=== PATIENT | male | born 1945 | race Caucasian/White ===

== ENCOUNTER 2017-10-07 14:38 | Inpatient (IN) | payer MEDICARE, MEDICAID ==
[~2017-10-07] VITALS: Ht 172.7 cm; Wt 60.0 kg
[~2017-10-07 14:38] MED LIST: AMIO200T36 PO; APIX2.5T PO; CARV6.253 PO; CLOP75TA15 PO; DOCU-28 PO; FLUT16SP10 INH; FURO-150 PO; HYDR-3972 PO; PANT20TA2 PO; POLY255P2 PO; POTA10CA44 PO; PRAV40TA PO; RAMI10CA PO; SPIR25TA PO
[2017-10-07] MEDS ORDERED: HYDROcodone/acetaminophen 5mg/325mg tablet PO ONE (16:05)
[2017-10-07 17:07] LABS: BASOPHILS % (AUTO) 0.4 % (0-1); EOSINOPHILS # (AUTO) 0.1 X10'3 (0-0.9); HEMOGLOBIN 9.7 g/dl (14.0-17.9); LYMPHOCYTES # (AUTO) 1.3 X10'3 (1.1-4.8); LYMPHOCYTES % (AUTO) 26.3 % (21-51); MEAN CORPUSCULAR HEMOGLOBIN 32.1 PG (27.0-31.0); MEAN CORPUSCULAR HGB CONC 34.7 % (33.0-36.5); MEAN CORPUSCULAR VOLUME 92.6 FL (78-98); MEAN PLATELET VOLUME 5.8 FL (7.4-10.4); MONOCYTES # (AUTO) 0.4 X10'3 (0-0.9); MONOCYTES % (AUTO) 7.2 % (2-12); NEUTROPHILS # (AUTO) 3.3 X10'3 (1.8-7.7); NEUTROPHILS % (AUTO) 64.1 % (42-75); PLATELET COUNT 358 X10'3 (140-440); RED BLOOD COUNT 3.02 X10'6 (4.70-6.10); RED CELL DISTRIBUTION WIDTH 15.4 % (11.5-14.5); WHITE BLOOD COUNT 5.1 X10'3 (4.5-11.0)
[2017-10-07 17:19] LABS: ALANINE AMINOTRANSFERASE 9 U/L (12-78); ALBUMIN 3.9 G/DL (3.4-5.0); ALBUMIN/GLOBULIN RATIO 1.2 (1.1-1.5); ALKALINE PHOSPHATASE 92 IU/L (46-116); ANION GAP 9 (8-16); ASPARTATE AMINO TRANSFERASE 16 U/L (10-37); BILIRUBIN,TOTAL 0.4 MG/DL (0.1-1.0); BLOOD UREA NITROGEN 17 MG/DL (7-18); BUN/CREATININE RATIO 14.7 (5.4-32.0); CHLORIDE 94 MMOL/L (99-107); CREATININE 1.16 MG/DL (0.60-1.10); GLUCOSE 90 MG/DL (70-104); POTASSIUM 4.1 MMOL/L (3.5-5.1); SODIUM 129 MMOL/L (135-145); TOTAL CARBON DIOXIDE 25.7 MMOL/L (24-32); TOTAL PROTEIN 7.1 G/DL (6.4-8.2); eGFR 62 ML/MIN
[2017-10-07] MEDS ORDERED: normal saline 1000ML IV soln IVB ONE (17:25)
[2017-10-07] MEDS ORDERED: BACL10TA PO (17:30)
[2017-10-07] MEDS ORDERED: mag hydrox/Alum hydrox/simeth 30ml oral suspension PO PRN (17:35)
[2017-10-07] MEDS ORDERED: potassium Cl 20 mEq SR tablet PO PRN ×2 (17:35)
[2017-10-07] MEDS ORDERED: ondansetron/PF 4mg/2ml inj IV PRN (17:35)
[2017-10-07] MEDS ORDERED: magnesium Cl slow-release 64mg tablet PO PRN (17:35)
[2017-10-07] MEDS ORDERED: acetaminophen 325mg tablet PO PRN (17:35)
[2017-10-07] MEDS ORDERED: magnesium 4gm in 100ml NS 100 ML IV PRN (17:35)
[2017-10-07] MEDS ORDERED: magnesium hydroxide 30ml (MOM) UD suspension PO PRN (17:35)
[2017-10-07] MEDS ORDERED: HYDROmorphone 1 mg/ml syringe IV PRN ×2 (17:35)
[2017-10-07] MEDS ORDERED: potassium Cl 40MEQ/NS 500ml 500 ML IV PRN ×2 (17:35)
[2017-10-07] MEDS ORDERED: magnesium 2GM in 50ml NS 50 ML IV PRN (17:35)
[2017-10-07] MEDS ORDERED: HYDROcodone/acetaminophen 5mg/325mg tablet PO PRN (17:35)
[2017-10-07] MEDS ORDERED: CYAN100097 IM (17:36)
[2017-10-07] MEDS ORDERED: FAMO-128 PO (17:39)
[2017-10-07 19:48] VITALS: BP 144/84
[2017-10-07] MEDS: carvedilol 6.25mg tablet PO SCH (19:52)
[2017-10-07] MEDS: normal saline 1000ml 1,000 ML IV SCH (19:57)
[2017-10-07] MEDS: spironolactone 25 MG tablet PO SCH (19:57)
[2017-10-07] MEDS: famotidine 20mg tablet PO SCH (19:57)
[2017-10-07 20:35] LABS: HEMOGLOBIN A1C 5.8 % (4.5-6.2)
[2017-10-07 22:00] VITALS: BP 130/68
[2017-10-07] MEDS: HYDROcodone/acetaminophen 10/325mg tab PO PRN (22:33)
[2017-10-08] VITALS (11 sets, daily range): BP systolic 78–145; BP diastolic 43–87
[2017-10-08 05:09] LABS: BASOPHILS % (AUTO) 0.5 % (0-1); EOSINOPHILS # (AUTO) 0.1 X10'3 (0-0.9); EOSINOPHILS % (AUTO) 2.8 % (0-6); HEMATOCRIT 28.1 % (42.0-52.0); HEMOGLOBIN 9.5 g/dl (14.0-17.9); LYMPHOCYTES # (AUTO) 1.1 X10'3 (1.1-4.8); LYMPHOCYTES % (AUTO) 32.8 % (21-51); MEAN CORPUSCULAR HEMOGLOBIN 31.7 PG (27.0-31.0); MEAN CORPUSCULAR HGB CONC 33.9 % (33.0-36.5); MEAN CORPUSCULAR VOLUME 93.7 FL (78-98); MEAN PLATELET VOLUME 5.8 FL (7.4-10.4); MONOCYTES # (AUTO) 0.3 X10'3 (0-0.9); MONOCYTES % (AUTO) 8.6 % (2-12); NEUTROPHILS # (AUTO) 1.9 X10'3 (1.8-7.7); NEUTROPHILS % (AUTO) 55.3 % (42-75); PLATELET COUNT 316 X10'3 (140-440); RED CELL DISTRIBUTION WIDTH 15.2 % (11.5-14.5); WHITE BLOOD COUNT 3.4 X10'3 (4.5-11.0)
[2017-10-08] MEDS: normal saline 1000ml 1,000 ML IV SCH (05:11)
[2017-10-08 05:20] LABS: ALBUMIN 3.3 G/DL (3.4-5.0); ANION GAP 10 (8-16); BLOOD UREA NITROGEN 13 MG/DL (7-18); BUN/CREATININE RATIO 13.7 (5.4-32.0); CALCIUM 8.6 MG/DL (8.5-10.1); CHLORIDE 101 MMOL/L (99-107); CREATININE 0.95 MG/DL (0.60-1.10); GLUCOSE 77 MG/DL (70-104); MAGNESIUM 2.1 MG/DL (1.5-2.4); POTASSIUM 3.6 MMOL/L (3.5-5.1); SODIUM 137 MMOL/L (135-145); TOTAL CARBON DIOXIDE 26.2 MMOL/L (24-32); eGFR 78 ML/MIN
[2017-10-08] MEDS: K and/or MAG REPLACEMENT MC SCH (06:59)
[2017-10-08] MEDS: spironolactone 25 MG tablet PO SCH ×2 (07:07→20:16)
[2017-10-08] MEDS: famotidine 20mg tablet PO SCH ×2 (07:07→20:16)
[2017-10-08] MEDS: amiodarone 200mg tablet PO SCH (07:07)
[2017-10-08] MEDS: carvedilol 6.25mg tablet PO SCH ×2 (07:07→20:16)
[2017-10-08] MEDS: lisinopril 10 MG tablet PO SCH (07:08)
[2017-10-08] MEDS: HYDROcodone/acetaminophen 10/325mg tab PO PRN ×3 (07:09→23:00)
[2017-10-08] MEDS: pravastatin 40mg tablet PO SCH (07:10)
[2017-10-08] MEDS: furosemide 20MG tablet PO SCH (07:10)
[2017-10-08] MEDS: docusate sod 100mg capsule PO SCH (20:16)
[2017-10-08] MEDS: baclofen 10mg tablet PO SCH (20:16)
[2017-10-08] MEDS: apixaban 2.5mg tablet PO SCH (22:04)
[2017-10-08] MEDS ORDERED: normal saline 250ml IV soln 250 ML IV ONE (22:10)
[2017-10-08] MEDS ORDERED: normal saline 500ml IV soln 500 ML IV ONE (22:20)
[2017-10-08] MEDS ORDERED: normal saline 1000ml 1,000 ML IV ONE (23:20)
[2017-10-09] VITALS (9 sets, daily range): BP systolic 92–123; BP diastolic 48–69
[2017-10-09] MEDS: HYDROcodone/acetaminophen 10/325mg tab PO PRN ×3 (05:21→22:11)
[2017-10-09 06:32] LABS: BASOPHILS % (AUTO) 0.4 % (0-1); EOSINOPHILS # (AUTO) 0.1 X10'3 (0-0.9); EOSINOPHILS % (AUTO) 2.1 % (0-6); HEMATOCRIT 27.3 % (42.0-52.0); HEMOGLOBIN 9.5 g/dl (14.0-17.9); LYMPHOCYTES # (AUTO) 1.2 X10'3 (1.1-4.8); LYMPHOCYTES % (AUTO) 22.2 % (21-51); MEAN CORPUSCULAR HEMOGLOBIN 32.4 PG (27.0-31.0); MEAN CORPUSCULAR HGB CONC 34.8 % (33.0-36.5); MEAN CORPUSCULAR VOLUME 92.9 FL (78-98); MEAN PLATELET VOLUME 5.8 FL (7.4-10.4); MONOCYTES # (AUTO) 0.5 X10'3 (0-0.9); NEUTROPHILS # (AUTO) 3.5 X10'3 (1.8-7.7); NEUTROPHILS % (AUTO) 66.3 % (42-75); PLATELET COUNT 318 X10'3 (140-440); RED BLOOD COUNT 2.94 X10'6 (4.70-6.10); RED CELL DISTRIBUTION WIDTH 15.7 % (11.5-14.5); WHITE BLOOD COUNT 5.3 X10'3 (4.5-11.0)
[2017-10-09 06:37] LABS: ALBUMIN 3.1 G/DL (3.4-5.0); ANION GAP 9 (8-16); BLOOD UREA NITROGEN 17 MG/DL (7-18); BUN/CREATININE RATIO 14.2 (5.4-32.0); CALCIUM 8.7 MG/DL (8.5-10.1); CHLORIDE 101 MMOL/L (99-107); GLUCOSE 106 MG/DL (70-104); MAGNESIUM 2.2 MG/DL (1.5-2.4); POTASSIUM 4.1 MMOL/L (3.5-5.1); SODIUM 136 MMOL/L (135-145); TOTAL CARBON DIOXIDE 26.3 MMOL/L (24-32); eGFR 59 ML/MIN
[2017-10-09] MEDS: K and/or MAG REPLACEMENT MC SCH (07:59)
[2017-10-09] MEDS: lisinopril 10 MG tablet PO SCH (08:00)
[2017-10-09] MEDS: spironolactone 25 MG tablet PO SCH ×2 (08:00→20:09)
[2017-10-09] MEDS: carvedilol 6.25mg tablet PO SCH (08:00)
[2017-10-09] MEDS ORDERED: polyethylene glycol 3350 17gm powd pack PO PRN (08:00)
[2017-10-09] MEDS ORDERED: calcitonin, salmon,Synth Nasal spray 200 units/actuation NS SCH (08:00)
[2017-10-09] MEDS: furosemide 20MG tablet PO SCH (08:00)
[2017-10-09] MEDS: baclofen 10mg tablet PO SCH ×2 (08:05→20:09)
[2017-10-09] MEDS: amiodarone 200mg tablet PO SCH (08:05)
[2017-10-09] MEDS: pantoprazole 40mg Tablet.DR PO SCH (08:05)
[2017-10-09] MEDS: pravastatin 40mg tablet PO SCH (08:05)
[2017-10-09] MEDS: famotidine 20mg tablet PO SCH (08:05)
[2017-10-09] MEDS: docusate sod 100mg capsule PO SCH ×2 (08:05→20:08)
[2017-10-09] MEDS: fluticasone nasal spray 16GM bottle NS SCH (08:06)
[2017-10-09] MEDS: apixaban 2.5mg tablet PO SCH ×2 (08:06→20:09)
[2017-10-09] MEDS ORDERED: HYDROmorphone inj. 0.5 MG/0.5 ML DISP.SYRIN ONE (18:35)
[2017-10-09] MEDS: carVEDilol 3.125mg tablet PO SCH (20:09)
[2017-10-10] MEDS: HYDROcodone/acetaminophen 10/325mg tab PO PRN ×2 (05:35→12:08)
[2017-10-10 06:00] VITALS: BP 107/67
[2017-10-10 06:35] LABS: BASOPHILS % (AUTO) 0.5 % (0-1); EOSINOPHILS # (AUTO) 0.1 X10'3 (0-0.9); HEMATOCRIT 27.8 % (42.0-52.0); HEMOGLOBIN 9.6 g/dl (14.0-17.9); LYMPHOCYTES # (AUTO) 1.3 X10'3 (1.1-4.8); LYMPHOCYTES % (AUTO) 27.4 % (21-51); MEAN CORPUSCULAR HEMOGLOBIN 32.2 PG (27.0-31.0); MEAN CORPUSCULAR HGB CONC 34.5 % (33.0-36.5); MEAN CORPUSCULAR VOLUME 93.1 FL (78-98); MEAN PLATELET VOLUME 5.9 FL (7.4-10.4); MONOCYTES # (AUTO) 0.4 X10'3 (0-0.9); MONOCYTES % (AUTO) 8.4 % (2-12); NEUTROPHILS # (AUTO) 2.9 X10'3 (1.8-7.7); NEUTROPHILS % (AUTO) 61.7 % (42-75); PLATELET COUNT 333 X10'3 (140-440); RED BLOOD COUNT 2.98 X10'6 (4.70-6.10); RED CELL DISTRIBUTION WIDTH 15.5 % (11.5-14.5); WHITE BLOOD COUNT 4.7 X10'3 (4.5-11.0)
[2017-10-10 06:52] LABS: ALBUMIN 3.2 G/DL (3.4-5.0); ANION GAP 10 (8-16); BLOOD UREA NITROGEN 21 MG/DL (7-18); BUN/CREATININE RATIO 16.9 (5.4-32.0); CALCIUM 8.7 MG/DL (8.5-10.1); CHLORIDE 98 MMOL/L (99-107); CREATININE 1.24 MG/DL (0.60-1.10); GLUCOSE 99 MG/DL (70-104); MAGNESIUM 2.1 MG/DL (1.5-2.4); POTASSIUM 4.5 MMOL/L (3.5-5.1); SODIUM 134 MMOL/L (135-145); TOTAL CARBON DIOXIDE 26.5 MMOL/L (24-32); eGFR 57 ML/MIN
[2017-10-10] MEDS: K and/or MAG REPLACEMENT MC SCH (08:00)
[2017-10-10] MEDS: carVEDilol 3.125mg tablet PO SCH ×2 (09:14→19:59)
[2017-10-10] MEDS: docusate sod 100mg capsule PO SCH ×2 (09:14→19:59)
[2017-10-10] MEDS: spironolactone 25 MG tablet PO SCH ×2 (09:14→19:59)
[2017-10-10] MEDS: pantoprazole 40mg Tablet.DR PO SCH (09:14)
[2017-10-10] MEDS: amiodarone 200mg tablet PO SCH (09:14)
[2017-10-10] MEDS: pravastatin 40mg tablet PO SCH (09:14)
[2017-10-10] MEDS: lisinopril 5mg tablet PO SCH (09:14)
[2017-10-10] MEDS: apixaban 2.5mg tablet PO SCH ×2 (09:15→19:59)
[2017-10-10] MEDS: baclofen 10mg tablet PO SCH ×2 (09:15→20:00)
[2017-10-10] MEDS: fluticasone nasal spray 16GM bottle NS SCH (09:16)
[2017-10-10 10:00] VITALS: BP 131/77
[2017-10-10 18:00] VITALS: BP 100/61
[2017-10-10] MEDS: polyethylene glycol 3350 17gm powd pack PO SCH (20:05)
[2017-10-10 22:00] VITALS: BP 110/65
[2017-10-11] MEDS: HYDROcodone/acetaminophen 10/325mg tab PO PRN ×2 (05:34→16:36)
[2017-10-11 05:45] LABS: BASOPHILS % (AUTO) 0.6 % (0-1); EOSINOPHILS # (AUTO) 0.1 X10'3 (0-0.9); EOSINOPHILS % (AUTO) 2.3 % (0-6); HEMATOCRIT 30.3 % (42.0-52.0); HEMOGLOBIN 10.3 g/dl (14.0-17.9); LYMPHOCYTES # (AUTO) 1.2 X10'3 (1.1-4.8); LYMPHOCYTES % (AUTO) 25.5 % (21-51); MEAN CORPUSCULAR HEMOGLOBIN 31.9 PG (27.0-31.0); MEAN CORPUSCULAR HGB CONC 34.1 % (33.0-36.5); MEAN CORPUSCULAR VOLUME 93.7 FL (78-98); MEAN PLATELET VOLUME 5.6 FL (7.4-10.4); MONOCYTES # (AUTO) 0.4 X10'3 (0-0.9); MONOCYTES % (AUTO) 7.8 % (2-12); NEUTROPHILS % (AUTO) 63.8 % (42-75); PLATELET COUNT 340 X10'3 (140-440); RED BLOOD COUNT 3.23 X10'6 (4.70-6.10); RED CELL DISTRIBUTION WIDTH 15.3 % (11.5-14.5); WHITE BLOOD COUNT 4.7 X10'3 (4.5-11.0)
[2017-10-11 05:58] LABS: ALBUMIN 3.5 G/DL (3.4-5.0); ANION GAP 8 (8-16); BLOOD UREA NITROGEN 22 MG/DL (7-18); BUN/CREATININE RATIO 23.2 (5.4-32.0); CHLORIDE 100 MMOL/L (99-107); CREATININE 0.95 MG/DL (0.60-1.10); GLUCOSE 99 MG/DL (70-104); MAGNESIUM 2.2 MG/DL (1.5-2.4); POTASSIUM 4.8 MMOL/L (3.5-5.1); SODIUM 135 MMOL/L (135-145); TOTAL CARBON DIOXIDE 26.6 MMOL/L (24-32); eGFR 78 ML/MIN
[2017-10-11 06:00] VITALS: BP 134/70
[2017-10-11] MEDS: K and/or MAG REPLACEMENT MC SCH (08:00)
[2017-10-11] MEDS: fluticasone nasal spray 16GM bottle NS SCH (09:21)
[2017-10-11] MEDS: pantoprazole 40mg Tablet.DR PO SCH (09:21)
[2017-10-11] MEDS: spironolactone 25 MG tablet PO SCH ×2 (09:21→20:00)
[2017-10-11] MEDS: apixaban 2.5mg tablet PO SCH (09:22)
[2017-10-11] MEDS: carVEDilol 3.125mg tablet PO SCH ×2 (09:22→20:00)
[2017-10-11] MEDS: amiodarone 200mg tablet PO SCH (09:23)
[2017-10-11] MEDS: docusate sod 100mg capsule PO SCH ×2 (09:24→20:00)
[2017-10-11] MEDS: pravastatin 40mg tablet PO SCH (09:24)
[2017-10-11] MEDS: baclofen 10mg tablet PO SCH ×2 (09:24→20:06)
[2017-10-11 10:00] VITALS: BP 125/82
[2017-10-11] MEDS: lisinopril 5mg tablet PO SCH (14:43)
[2017-10-11 18:00] VITALS: BP 96/54
[2017-10-11] MEDS: polyethylene glycol 3350 17gm powd pack PO SCH (20:03)
[2017-10-11 22:00] VITALS: BP 90/53
[2017-10-12] MEDS: HYDROcodone/acetaminophen 10/325mg tab PO PRN ×3 (00:53→22:20)
[2017-10-12 06:00] VITALS: BP 111/66
[2017-10-12 06:59] LABS: BASOPHILS % (AUTO) 0.3 % (0-1); EOSINOPHILS # (AUTO) 0.2 X10'3 (0-0.9); EOSINOPHILS % (AUTO) 2.9 % (0-6); HEMOGLOBIN 9.6 g/dl (14.0-17.9); LYMPHOCYTES # (AUTO) 1.5 X10'3 (1.1-4.8); LYMPHOCYTES % (AUTO) 26.8 % (21-51); MEAN CORPUSCULAR HEMOGLOBIN 32.2 PG (27.0-31.0); MEAN CORPUSCULAR HGB CONC 34.5 % (33.0-36.5); MEAN CORPUSCULAR VOLUME 93.4 FL (78-98); MEAN PLATELET VOLUME 5.9 FL (7.4-10.4); MONOCYTES # (AUTO) 0.5 X10'3 (0-0.9); MONOCYTES % (AUTO) 8.4 % (2-12); NEUTROPHILS # (AUTO) 3.5 X10'3 (1.8-7.7); NEUTROPHILS % (AUTO) 61.6 % (42-75); PLATELET COUNT 326 X10'3 (140-440); RED CELL DISTRIBUTION WIDTH 15.4 % (11.5-14.5); WHITE BLOOD COUNT 5.6 X10'3 (4.5-11.0)
[2017-10-12 07:23] LABS: ALBUMIN 3.3 G/DL (3.4-5.0); ANION GAP 7 (8-16); BLOOD UREA NITROGEN 27 MG/DL (7-18); CALCIUM 8.7 MG/DL (8.5-10.1); CHLORIDE 99 MMOL/L (99-107); GLUCOSE 89 MG/DL (70-104); MAGNESIUM 2.3 MG/DL (1.5-2.4); POTASSIUM 4.7 MMOL/L (3.5-5.1); SODIUM 133 MMOL/L (135-145); eGFR 73 ML/MIN
[2017-10-12] MEDS: K and/or MAG REPLACEMENT MC SCH (08:00)
[2017-10-12] MEDS: pantoprazole 40mg Tablet.DR PO SCH (08:07)
[2017-10-12] MEDS: amiodarone 200mg tablet PO SCH (08:08)
[2017-10-12] MEDS: docusate sod 100mg capsule PO SCH ×2 (08:08→20:16)
[2017-10-12] MEDS: baclofen 10mg tablet PO SCH ×2 (08:08→20:16)
[2017-10-12] MEDS: lisinopril 5mg tablet PO SCH (08:08)
[2017-10-12] MEDS: carVEDilol 3.125mg tablet PO SCH ×2 (08:08→20:16)
[2017-10-12] MEDS: pravastatin 40mg tablet PO SCH (08:08)
[2017-10-12] MEDS: spironolactone 25 MG tablet PO SCH ×2 (08:08→20:16)
[2017-10-12] MEDS: fluticasone nasal spray 16GM bottle NS SCH (08:08)
[2017-10-12 08:18] VITALS: BP 121/86
[2017-10-12 18:00] VITALS: BP 118/66
[2017-10-12] MEDS: polyethylene glycol 3350 17gm powd pack PO SCH (20:17)
[2017-10-12 22:00] VITALS: BP 112/68
[2017-10-13] VITALS (12 sets, daily range): BP systolic 101–193; BP diastolic 62–124
[2017-10-13] MEDS: HYDROcodone/acetaminophen 10/325mg tab PO PRN (05:42)
[2017-10-13 06:27] LABS: BASOPHILS % (AUTO) 0.3 % (0-1); EOSINOPHILS # (AUTO) 0.1 X10'3 (0-0.9); EOSINOPHILS % (AUTO) 2.4 % (0-6); HEMATOCRIT 28.7 % (42.0-52.0); HEMOGLOBIN 9.8 g/dl (14.0-17.9); LYMPHOCYTES # (AUTO) 1.4 X10'3 (1.1-4.8); LYMPHOCYTES % (AUTO) 25.6 % (21-51); MEAN CORPUSCULAR HEMOGLOBIN 32.1 PG (27.0-31.0); MEAN CORPUSCULAR HGB CONC 34.2 % (33.0-36.5); MONOCYTES # (AUTO) 0.5 X10'3 (0-0.9); MONOCYTES % (AUTO) 8.6 % (2-12); NEUTROPHILS # (AUTO) 3.5 X10'3 (1.8-7.7); NEUTROPHILS % (AUTO) 63.1 % (42-75); PLATELET COUNT 364 X10'3 (140-440); RED BLOOD COUNT 3.05 X10'6 (4.70-6.10); RED CELL DISTRIBUTION WIDTH 16.1 % (11.5-14.5); WHITE BLOOD COUNT 5.6 X10'3 (4.5-11.0)
[2017-10-13 06:35] LABS: ALBUMIN 3.4 G/DL (3.4-5.0); ANION GAP 8 (8-16); BLOOD UREA NITROGEN 25 MG/DL (7-18); CALCIUM 8.8 MG/DL (8.5-10.1); CHLORIDE 99 MMOL/L (99-107); CREATININE 1.19 MG/DL (0.60-1.10); GLUCOSE 90 MG/DL (70-104); MAGNESIUM 2.4 MG/DL (1.5-2.4); POTASSIUM 4.6 MMOL/L (3.5-5.1); SODIUM 133 MMOL/L (135-145); eGFR 60 ML/MIN
[2017-10-13] MEDS ORDERED: midazolam 2 mg/2 ml injection IV PRN (08:00)
[2017-10-13] MEDS ORDERED: fentaNYL/PF 50MCG/1 ML 2ML syringe IV PRN (08:00)
[2017-10-13] MEDS ORDERED: clindamycin 600mg/D5W 50ml 50 ML IV ONE ×2 (08:00→08:07)
[2017-10-13] MEDS: K and/or MAG REPLACEMENT MC SCH (08:00)
[2017-10-13] MEDS ORDERED: normal saline 1000ml 1,000 ML IV SCH ×2 (08:00→11:04)
[2017-10-13] MEDS: pantoprazole 40mg Tablet.DR PO SCH (08:03)
[2017-10-13] MEDS ORDERED: LIDOcaine 1%/PF (10mg/ml) 5ml vial ONE (08:24)
[2017-10-13] MEDS ORDERED: iohexol 300 MG/1 ML 50ml polymer ONE (08:24)
[2017-10-13] MEDS ORDERED: fentaNYL/PF 50MCG/1 ML 2ML syringe ONE ×2 (08:27→09:35)
[2017-10-13] MEDS ORDERED: midazolam 2 mg/2 ml injection ONE ×2 (08:27→09:35)
[2017-10-13] MEDS ORDERED: diphenhydrAMINE 50 mg/ml inj ONE ×2 (08:52→08:59)
[2017-10-13] MEDS ORDERED: diphenhydrAMINE 50 mg/ml inj IV ONE (09:10)
[2017-10-13] MEDS: fluticasone nasal spray 16GM bottle NS SCH (11:04)
[2017-10-13] MEDS: amiodarone 200mg tablet PO SCH (11:05)
[2017-10-13] MEDS: pravastatin 40mg tablet PO SCH (11:05)
[2017-10-13] MEDS: docusate sod 100mg capsule PO SCH (11:05)
[2017-10-13] MEDS: baclofen 10mg tablet PO SCH (11:05)
[2017-10-13] MEDS: carVEDilol 3.125mg tablet PO SCH (11:05)
[2017-10-13] MEDS: spironolactone 25 MG tablet PO SCH (11:05)
[2017-10-13] MEDS: lisinopril 5mg tablet PO SCH (11:05)
[2017-10-13] MEDS ORDERED: morphine 10mg/ml inj. IV PRN (18:35)
[2017-10-13] MEDS ORDERED: morphine 10mg/0.5ml (conc. morphine) oral syringe PO PRN (18:35)
[2017-10-13] MEDS ORDERED: LORazepam 2 mg/ml vial IV PRN (18:35)
[2017-10-13] MEDS ORDERED: sennosides/docusate sodium tablet PO SCH (20:00)
[2017-10-13] MEDS ORDERED: docusate sod 100mg capsule PO SCH (20:00)
== END 2017-10-13 19:03 | DRG 673 ==
LOC: ER 14:38 → ED HOLD 17:35 → ORTHO 4S 19:15
PROVIDERS: ADMIT Internal Medicine; ATTEND Internal Medicine
PROC: 0QS03ZZ Reposition Lumbar Vertebra, Percutaneous Approach (ICD-10-PCS; principal; 2017-10-13)
PROC: 0Q903ZX Drainage of Lumbar Vertebra, Percutaneous Approach, Diagnostic (ICD-10-PCS; 2017-10-13)
PROC: 0QU03JZ Supplement Lumbar Vertebra with Synthetic Substitute, Percutaneous Approach (ICD-10-PCS; 2017-10-13)
PROC: BR19ZZZ Fluoroscopy of Lumbar Spine (ICD-10-PCS; 2017-10-13)
DX: N17.9 Acute kidney failure, unspecified (principal); I71.00 Dissection of unspecified site of aorta; S32.038A Other fracture of third lumbar vertebra, initial encounter for closed fracture; I48.0 Paroxysmal atrial fibrillation; E87.1 Hypo-osmolality and hyponatremia; I11.0 Hypertensive heart disease with heart failure; I50.9 Heart failure, unspecified; E86.0 Dehydration; D64.9 Anemia, unspecified; E11.9 Type 2 diabetes mellitus without complications; I25.10 Atherosclerotic heart disease of native coronary artery without angina pectoris; I71.4 Abdominal aortic aneurysm, without rupture; J30.9 Allergic rhinitis, unspecified; E78.5 Hyperlipidemia, unspecified; H54.8 Legal blindness, as defined in USA; R62.7 Adult failure to thrive; Z60.2 Problems related to living alone; Z88.0 Allergy status to penicillin; Z79.899 Other long term (current) drug therapy; Z79.01 Long term (current) use of anticoagulants; X58.XXXA Exposure to other specified factors, initial encounter; Y92.89 Other specified places as the place of occurrence of the external cause
CPT/HCPCS: 22514; 36415; 72100; 72131; 72148; 80048; 80053; 83036; 83735; 85025; 87070; 88173; 88305; 93005; 97110; 97116; 97162; 97530; 99152; 99153; 99285; A4620; J1170; J1200; J2001; J2250; J2405; J3010; J3490; J7030; Q9967

== ENCOUNTER 2017-10-25 15:01 | Inpatient (IN) | payer MEDICARE, MEDICAID ==
[~2017-10-25] VITALS: Ht 172.7 cm; Wt 64.7 kg
[~2017-10-25 15:01] MED LIST changes: +BACL10TA PO; +CYAN100097 IM; +FAMO-128 PO
[2017-10-25] MEDS ORDERED: ondansetron/PF 4mg/2ml inj IV ONE (15:15)
[2017-10-25] MEDS ORDERED: aspirin 81mg tab.chew PO ONE (15:35)
[2017-10-25 15:41] LABS: BASOPHILS % (AUTO) 0.9 % (0-1); EOSINOPHILS # (AUTO) 0.1 X10'3 (0-0.9); EOSINOPHILS % (AUTO) 1.7 % (0-6); HEMATOCRIT 27.8 % (42.0-52.0); HEMOGLOBIN 9.5 g/dl (14.0-17.9); LYMPHOCYTES # (AUTO) 1.2 X10'3 (1.1-4.8); LYMPHOCYTES % (AUTO) 25.5 % (21-51); MEAN CORPUSCULAR HEMOGLOBIN 31.6 PG (27.0-31.0); MEAN CORPUSCULAR HGB CONC 34.2 % (33.0-36.5); MEAN CORPUSCULAR VOLUME 92.3 FL (78-98); MEAN PLATELET VOLUME 5.9 FL (7.4-10.4); MONOCYTES # (AUTO) 0.4 X10'3 (0-0.9); MONOCYTES % (AUTO) 8.2 % (2-12); NEUTROPHILS # (AUTO) 2.9 X10'3 (1.8-7.7); NEUTROPHILS % (AUTO) 63.7 % (42-75); PLATELET COUNT 499 X10'3 (140-440); RED BLOOD COUNT 3.01 X10'6 (4.70-6.10); RED CELL DISTRIBUTION WIDTH 15.7 % (11.5-14.5); WHITE BLOOD COUNT 4.6 X10'3 (4.5-11.0)
[2017-10-25 15:53] LABS: PARTIAL THROMBOPLASTIN TIME 27 SECONDS (22-32); PROTHROMBIN TIME 10.3 SECONDS (9.0-12.0)
[2017-10-25 16:04] LABS: ALANINE AMINOTRANSFERASE 22 U/L (12-78); ALBUMIN 3.7 G/DL (3.4-5.0); ALBUMIN/GLOBULIN RATIO 1.1 (1.1-1.5); ALKALINE PHOSPHATASE 153 IU/L (46-116); ANION GAP 9 (8-16); ASPARTATE AMINO TRANSFERASE 28 U/L (10-37); BILIRUBIN,TOTAL 0.3 MG/DL (0.1-1.0); BLOOD UREA NITROGEN 26 MG/DL (7-18); BUN/CREATININE RATIO 20.6 (5.4-32.0); CALCIUM 8.3 MG/DL (8.5-10.1); CHLORIDE 98 MMOL/L (99-107); CREATININE 1.26 MG/DL (0.60-1.10); GLUCOSE 87 MG/DL (70-104); LIPASE 307 U/L (73-393); MAGNESIUM 2.4 MG/DL (1.5-2.4); POTASSIUM 4.8 MMOL/L (3.5-5.1); SODIUM 131 MMOL/L (135-145); TOTAL CARBON DIOXIDE 23.9 MMOL/L (24-32); eGFR 56 ML/MIN
[2017-10-25] MEDS ORDERED: bisacodyl 10mg suppository rectal RC PRN (20:30)
[2017-10-25] MEDS ORDERED: ondansetron/PF 4mg/2ml inj IV PRN (20:30)
[2017-10-25] MEDS ORDERED: mag hydrox/Alum hydrox/simeth 30ml oral suspension PO PRN (20:30)
[2017-10-25] MEDS ORDERED: acetaminophen 325mg tablet PO PRN (20:30)
[2017-10-25] MEDS ORDERED: magnesium hydroxide 30ml (MOM) UD suspension PO PRN (20:30)
[2017-10-25 20:35] LABS: CLARITY,URINE Clear (Clear); COLOR,URINE Yellow (Yellow); GLUCOSE, URINE Negative (Neg); KETONES,URINE Negative (Neg); LEUKOCYTE ESTERASE ,URINE Negative (Neg); NITRITES, URINE Negative (Neg); OCCULT BLOOD,URINE Negative (Neg); PROTEIN,URINE Negative (Neg)
[2017-10-25] MEDS ORDERED: lactulose 20gm/30ml cup PO ONE (20:40)
[2017-10-25 20:48] LABS: UA COLLECTION TYPE VOIDED
[2017-10-25] MEDS: HYDROcodone/acetaminophen 10/325mg tab PO PRN (21:07)
[2017-10-26 07:25] VITALS: BP 134/68
[2017-10-26 08:00] VITALS: BP 127/73
[2017-10-26] MEDS ORDERED: furosemide 20MG tablet PO SCH (08:00)
[2017-10-26] MEDS: fluticasone nasal spray 16GM bottle NS SCH (08:00)
[2017-10-26] MEDS ORDERED: lisinopril 10 MG tablet PO SCH (08:00)
[2017-10-26] MEDS ORDERED: potassium chloride 10mEq CAPSULE.SA PO SCH (08:00)
[2017-10-26 08:41] LABS: ALANINE AMINOTRANSFERASE 25 U/L (12-78); ALBUMIN 3.3 G/DL (3.4-5.0); ALBUMIN/GLOBULIN RATIO 1.1 (1.1-1.5); ALKALINE PHOSPHATASE 139 IU/L (46-116); ANION GAP 10 (8-16); ASPARTATE AMINO TRANSFERASE 22 U/L (10-37); BILIRUBIN,TOTAL 0.3 MG/DL (0.1-1.0); BLOOD UREA NITROGEN 15 MG/DL (7-18); BUN/CREATININE RATIO 17.9 (5.4-32.0); CALCIUM 8.6 MG/DL (8.5-10.1); CHLORIDE 103 MMOL/L (99-107); CREATININE 0.84 MG/DL (0.60-1.10); GLUCOSE 81 MG/DL (70-104); POTASSIUM 4.6 MMOL/L (3.5-5.1); SODIUM 138 MMOL/L (135-145); TOTAL CARBON DIOXIDE 25.5 MMOL/L (24-32); TOTAL PROTEIN 6.3 G/DL (6.4-8.2); eGFR 90 ML/MIN
[2017-10-26] MEDS: spironolactone 25 MG tablet PO SCH ×2 (10:05→20:00)
[2017-10-26] MEDS: clopidogrel 75mg tablet PO SCH (10:06)
[2017-10-26] MEDS: amiodarone 200mg tablet PO SCH (10:06)
[2017-10-26] MEDS: carvedilol 6.25mg tablet PO SCH ×2 (10:06→20:00)
[2017-10-26] MEDS: docusate sod 100mg capsule PO SCH ×2 (10:06→20:16)
[2017-10-26] MEDS: pantoprazole 40mg Tablet.DR PO SCH (10:07)
[2017-10-26] MEDS: famotidine 20mg tablet PO SCH ×2 (10:07→20:17)
[2017-10-26] MEDS: pravastatin 40mg tablet PO SCH (10:10)
[2017-10-26] MEDS: apixaban 2.5mg tablet PO SCH ×2 (10:11→20:17)
[2017-10-26 11:00] VITALS: BP 115/71
[2017-10-26] MEDS: potassium Cl 20 mEq SR tablet PO SCH (13:45)
[2017-10-26 20:00] VITALS: BP 84/51
[2017-10-26] MEDS: HYDROcodone/acetaminophen 10/325mg tab PO PRN (20:08)
[2017-10-27] VITALS: BP 81/52
[2017-10-27] MEDS ORDERED: normal saline 1000ml 1,000 ML IV ONE (00:55)
[2017-10-27] MEDS: HYDROcodone/acetaminophen 10/325mg tab PO PRN ×2 (01:11→16:43)
[2017-10-27 07:00] VITALS: BP 103/63
[2017-10-27] MEDS: pantoprazole 40mg Tablet.DR PO SCH (07:30)
[2017-10-27] MEDS: apixaban 2.5mg tablet PO SCH ×2 (08:00→19:38)
[2017-10-27] MEDS: carvedilol 6.25mg tablet PO SCH ×2 (08:00→19:38)
[2017-10-27] MEDS: pravastatin 40mg tablet PO SCH (08:00)
[2017-10-27] MEDS: furosemide 20MG tablet PO SCH (08:00)
[2017-10-27] MEDS: lisinopril 2.5mg tablet PO SCH (08:00)
[2017-10-27] MEDS: fluticasone nasal spray 16GM bottle NS SCH (08:00)
[2017-10-27] MEDS: amiodarone 200mg tablet PO SCH (08:58)
[2017-10-27] MEDS: docusate sod 100mg capsule PO SCH ×2 (08:58→19:37)
[2017-10-27] MEDS: potassium Cl 20 mEq SR tablet PO SCH (08:59)
[2017-10-27] MEDS: clopidogrel 75mg tablet PO SCH (08:59)
[2017-10-27] MEDS: famotidine 20mg tablet PO SCH ×2 (08:59→19:35)
[2017-10-27 11:00] VITALS: BP 99/58
[2017-10-27 20:00] VITALS: BP_SYST 103; BP_SYST 105; BP_SYST 109; BP_SYST 113; BP_DIAS 61; BP_DIAS 66; BP_DIAS 67; BP_DIAS 68
[2017-10-27] MEDS ORDERED: sennosides 8.6mg tablet PO SCH (21:00)
[2017-10-28] VITALS: BP 125/77
[2017-10-28] MEDS: fluticasone nasal spray 16GM bottle NS SCH (01:25)
[2017-10-28 06:20] LABS: BASOPHILS % (AUTO) 0.2 % (0-1); EOSINOPHILS # (AUTO) 0.2 X10'3 (0-0.9); EOSINOPHILS % (AUTO) 2.8 % (0-6); HEMATOCRIT 27.8 % (42.0-52.0); HEMOGLOBIN 9.5 g/dl (14.0-17.9); LYMPHOCYTES # (AUTO) 1.6 X10'3 (1.1-4.8); MEAN CORPUSCULAR HEMOGLOBIN 31.1 PG (27.0-31.0); MEAN CORPUSCULAR HGB CONC 34.1 % (33.0-36.5); MEAN CORPUSCULAR VOLUME 91.3 FL (78-98); MEAN PLATELET VOLUME 6.1 FL (7.4-10.4); MONOCYTES # (AUTO) 0.5 X10'3 (0-0.9); MONOCYTES % (AUTO) 7.7 % (2-12); NEUTROPHILS # (AUTO) 4.1 X10'3 (1.8-7.7); NEUTROPHILS % (AUTO) 64.3 % (42-75); PLATELET COUNT 463 X10'3 (140-440); RED BLOOD COUNT 3.05 X10'6 (4.70-6.10); RED CELL DISTRIBUTION WIDTH 15.9 % (11.5-14.5); WHITE BLOOD COUNT 6.4 X10'3 (4.5-11.0)
[2017-10-28 06:47] LABS: ALBUMIN 3.3 G/DL (3.4-5.0); ANION GAP 10 (8-16); BLOOD UREA NITROGEN 20 MG/DL (7-18); BUN/CREATININE RATIO 22.5 (5.4-32.0); CALCIUM 8.7 MG/DL (8.5-10.1); CHLORIDE 101 MMOL/L (99-107); CREATININE 0.89 MG/DL (0.60-1.10); GLUCOSE 95 MG/DL (70-104); POTASSIUM 4.2 MMOL/L (3.5-5.1); SODIUM 136 MMOL/L (135-145); TOTAL CARBON DIOXIDE 24.9 MMOL/L (24-32); eGFR 84 ML/MIN
[2017-10-28 07:00] VITALS: BP 116/76
[2017-10-28 08:00] VITALS: BP_SYST 114; BP_SYST 116; BP_SYST 95; BP_DIAS 64; BP_DIAS 68; BP_DIAS 76
[2017-10-28] MEDS: famotidine 20mg tablet PO SCH (09:02)
[2017-10-28] MEDS: lisinopril 2.5mg tablet PO SCH (09:03)
[2017-10-28] MEDS: carvedilol 6.25mg tablet PO SCH (09:03)
[2017-10-28] MEDS: pravastatin 40mg tablet PO SCH (09:04)
[2017-10-28] MEDS: furosemide 20MG tablet PO SCH (09:04)
[2017-10-28] MEDS: apixaban 2.5mg tablet PO SCH (09:04)
[2017-10-28] MEDS: docusate sod 100mg capsule PO SCH (09:04)
[2017-10-28] MEDS: amiodarone 200mg tablet PO SCH (09:05)
[2017-10-28] MEDS: clopidogrel 75mg tablet PO SCH (09:05)
[2017-10-28] MEDS: potassium Cl 20 mEq SR tablet PO SCH (09:05)
[2017-10-28] MEDS: pantoprazole 40mg Tablet.DR PO SCH (09:05)
[2017-10-28 11:00] VITALS: BP_SYST 106; BP_SYST 112; BP_SYST 122; BP_SYST 98; BP_DIAS 67; BP_DIAS 71; BP_DIAS 75
[2017-10-28] MEDS ORDERED: CARV6.253 PO (16:28)
[2017-10-28] MEDS ORDERED: FURO20TA4 PO (16:28)
== END 2017-10-28 16:59 | disposition home health service (06) | DRG 389 ==
LOC: ER 15:01 → OBSVTOIN 23:36 → ED HOLD 23:36 → SUR 3N 10-26 07:13
PROVIDERS: ADMIT Internal Medicine; ATTEND Family Medicine
DX: K56.41 Fecal impaction (principal); E87.1 Hypo-osmolality and hyponatremia; I48.91 Unspecified atrial fibrillation; I50.20 Unspecified systolic (congestive) heart failure; I11.0 Hypertensive heart disease with heart failure; D64.9 Anemia, unspecified; E11.9 Type 2 diabetes mellitus without complications; H54.8 Legal blindness, as defined in USA; M48.56XD Collapsed vertebra, not elsewhere classified, lumbar region, subsequent encounter for fracture with routine healing; H55.00 Unspecified nystagmus; I25.10 Atherosclerotic heart disease of native coronary artery without angina pectoris; I95.1 Orthostatic hypotension; Z60.2 Problems related to living alone; Z88.0 Allergy status to penicillin; Z79.02 Long term (current) use of antithrombotics/antiplatelets; Z79.01 Long term (current) use of anticoagulants; Z79.899 Other long term (current) drug therapy
CPT/HCPCS: 36415; 70450; 72131; 74176; 80048; 80053; 81003; 82948; 83605; 83690; 83735; 83880; 84145; 84484; 85025; 85610; 85730; 87040; 87070; 93005; 93306; 96374; 99285; J2405; J7030

== ENCOUNTER 2017-11-22 14:02 | Emergency (ER) | payer MEDICARE, MEDICAID ==
[~2017-11-22] VITALS: Ht 172.7 cm; Wt 47.9 kg
[~2017-11-22 14:02] MED LIST changes: -BACL10TA PO; -FURO-150 PO; +FURO20TA4 PO; -PANT20TA2 PO; -RAMI10CA PO; -SPIR25TA PO
[2017-11-22 17:08] LABS: ALANINE AMINOTRANSFERASE 18 U/L (12-78); ALBUMIN 3.7 G/DL (3.4-5.0); ALBUMIN/GLOBULIN RATIO 1.2 (1.1-1.5); ALKALINE PHOSPHATASE 80 IU/L (46-116); ANION GAP 8 (8-16); ASPARTATE AMINO TRANSFERASE 20 U/L (10-37); BILIRUBIN,TOTAL 0.3 MG/DL (0.1-1.0); BLOOD UREA NITROGEN 24 MG/DL (7-18); BUN/CREATININE RATIO 17.6 (5.4-32.0); CALCIUM 8.8 MG/DL (8.5-10.1); CHLORIDE 101 MMOL/L (99-107); CREATININE 1.36 MG/DL (0.60-1.10); GLUCOSE 77 MG/DL (70-104); SODIUM 138 MMOL/L (135-145); TOTAL CARBON DIOXIDE 28.6 MMOL/L (24-32); TOTAL PROTEIN 6.8 G/DL (6.4-8.2); eGFR 51 ML/MIN
[2017-11-22] MEDS ORDERED: magnesium citrate 296ml oral solution PO ONE (17:20)
[2017-11-22 17:42] LABS: BASOPHILS % (AUTO) 0.3 % (0-1); EOSINOPHILS # (AUTO) 0.1 X10'3 (0-0.9); EOSINOPHILS % (AUTO) 2.1 % (0-6); HEMATOCRIT 28.6 % (42.0-52.0); HEMOGLOBIN 9.7 g/dl (14.0-17.9); LYMPHOCYTES # (AUTO) 1.6 X10'3 (1.1-4.8); LYMPHOCYTES % (AUTO) 38.2 % (21-51); MEAN CORPUSCULAR HEMOGLOBIN 31.3 PG (27.0-31.0); MEAN PLATELET VOLUME 6.2 FL (7.4-10.4); MONOCYTES # (AUTO) 0.5 X10'3 (0-0.9); MONOCYTES % (AUTO) 11.5 % (2-12); NEUTROPHILS % (AUTO) 47.9 % (42-75); PLATELET COUNT 311 X10'3 (140-440); RED BLOOD COUNT 3.11 X10'6 (4.70-6.10); RED CELL DISTRIBUTION WIDTH 16.3 % (11.5-14.5); WHITE BLOOD COUNT 4.2 X10'3 (4.5-11.0)
[2017-11-22 17:43] VITALS: BP 118/79
== END 2017-11-22 17:56 | disposition home or self-care (01) ==
LOC: ER 14:02
DX: K59.00 Constipation, unspecified (principal); I25.10 Atherosclerotic heart disease of native coronary artery without angina pectoris; I11.0 Hypertensive heart disease with heart failure; I50.9 Heart failure, unspecified; E11.9 Type 2 diabetes mellitus without complications; Z59.0 Homelessness; Z88.0 Allergy status to penicillin; Z79.899 Other long term (current) drug therapy
CPT/HCPCS: 36415; 74176; 80053; 85025; 99285

== ENCOUNTER 2018-01-08 00:41 | Emergency (ER) | payer MEDICARE, MEDICAID ==
[~2018-01-08] VITALS: Ht 172.7 cm; Wt 60.0 kg
[2018-01-08 00:49] VITALS: BP 112/72
[2018-01-08] MEDS ORDERED: LIDOcaine Viscous 15ml cup TP ONE (01:05)
[2018-01-08] MEDS ORDERED: DOXY100C43 PO (16:51)
== END 2018-01-08 01:44 | disposition home or self-care (01) ==
LOC: ER 00:41
DX: L55.9 Sunburn, unspecified (principal); I25.10 Atherosclerotic heart disease of native coronary artery without angina pectoris; I11.0 Hypertensive heart disease with heart failure; I50.9 Heart failure, unspecified; E11.9 Type 2 diabetes mellitus without complications; L03.115 Cellulitis of right lower limb; Z88.0 Allergy status to penicillin; Z79.899 Other long term (current) drug therapy
CPT/HCPCS: 99281; 99284

== ENCOUNTER 2018-07-23 02:34 | Inpatient (IN) | payer MEDICARE, MEDICAID ==
[~2018-07-23] VITALS: Ht 172.7 cm; Wt 64.1 kg
[2018-07-23] MEDS ORDERED: LIDOcaine Viscous 15ml cup PO ONE (02:50)
[2018-07-23] MEDS ORDERED: mag hydrox/Alum hydrox/simeth 30ml oral suspension PO ONE (02:50)
[2018-07-23 03:08] LABS: BASOPHILS % (AUTO) 0.3 % (0-1); EOSINOPHILS # (AUTO) 0.1 X10'3 (0-0.9); HEMATOCRIT 29.5 % (42.0-52.0); HEMOGLOBIN 9.3 g/dl (14.0-17.9); LYMPHOCYTES # (AUTO) 0.8 X10'3 (1.1-4.8); LYMPHOCYTES % (AUTO) 10.5 % (21-51); MEAN CORPUSCULAR HGB CONC 31.6 % (33.0-36.5); MEAN CORPUSCULAR VOLUME 79.1 FL (78-98); MEAN PLATELET VOLUME 6.5 FL (7.4-10.4); MONOCYTES # (AUTO) 0.4 X10'3 (0-0.9); MONOCYTES % (AUTO) 5.2 % (2-12); PLATELET COUNT 348 X10'3 (140-440); RED BLOOD COUNT 3.74 X10'6 (4.70-6.10); WHITE BLOOD COUNT 7.3 X10'3 (4.5-11.0)
[2018-07-23 03:29] LABS: ALANINE AMINOTRANSFERASE 16 U/L (12-78); ALBUMIN/GLOBULIN RATIO 1.3 (1.1-1.5); ALKALINE PHOSPHATASE 80 IU/L (46-116); ANION GAP 10 (8-16); ASPARTATE AMINO TRANSFERASE 16 U/L (10-37); BILIRUBIN,TOTAL 0.5 MG/DL (0.1-1.0); BLOOD UREA NITROGEN 14 MG/DL (7-18); CHLORIDE 102 MMOL/L (99-107); CREATININE 1.08 MG/DL (0.60-1.10); GLUCOSE 123 MG/DL (70-104); LIPASE 188 U/L (73-393); SODIUM 138 MMOL/L (135-145); TOTAL CARBON DIOXIDE 26.2 MMOL/L (24-32); TOTAL PROTEIN 7.1 G/DL (6.4-8.2); eGFR 67 ML/MIN
[2018-07-23] MEDS ORDERED: ondansetron/PF 4mg/2ml inj IV ONE (03:40)
[2018-07-23] MEDS ORDERED: normal saline 1000ML IV soln IVB ONE (03:40)
[2018-07-23 03:46] LABS: CLARITY,URINE CLEAR (Clear); COLOR,URINE YELLOW (Yellow); GLUCOSE, URINE NEGATIVE (Neg); KETONES,URINE NEGATIVE (Neg); LEUKOCYTE ESTERASE ,URINE NEGATIVE (Neg); NITRITES, URINE NEGATIVE (Neg); OCCULT BLOOD,URINE NEGATIVE (Neg); PH,URINE 6.5 (4.8-8.0); PROTEIN,URINE NEGATIVE (Neg); UA COLLECTION TYPE CLN CATCH MIDSTREAM
[2018-07-23] MEDS: morphine 4 MG/ML inj SYRINge IV PRN ×2 (04:07→05:38)
[2018-07-23] MEDS ORDERED: APIX2.5T PO (05:27)
[2018-07-23] MEDS ORDERED: SPIR25TA5 PO (05:27)
[2018-07-23] MEDS ORDERED: FERR140T2 (05:27)
[2018-07-23] MEDS ORDERED: BACL10TA PO (05:27)
[2018-07-23] MEDS ORDERED: normal saline 1000ml 1,000 ML IV SCH (06:13)
[2018-07-23] MEDS ORDERED: magnesium hydroxide 30ml (MOM) UD suspension PO PRN (06:15)
[2018-07-23] MEDS ORDERED: mag hydrox/Alum hydrox/simeth 30ml oral suspension PO PRN (06:15)
[2018-07-23] MEDS ORDERED: acetaminophen 325mg tablet PO PRN ×2 (06:15)
[2018-07-23] MEDS ORDERED: polyethylene glycol 3350 17gm powd pack PO PRN (07:00)
[2018-07-23 07:19] VITALS: BP 158/94
[2018-07-23] MEDS ORDERED: furosemide 20MG tablet PO SCH (08:00)
[2018-07-23] MEDS ORDERED: apixaban 2.5mg tablet PO SCH (08:00)
[2018-07-23] MEDS: docusate sod 100mg capsule PO SCH ×2 (08:30→20:52)
[2018-07-23] MEDS: spironolactone 25 MG tablet PO SCH ×2 (08:32→20:52)
[2018-07-23] MEDS: carVEDilol 3.125mg tablet PO SCH ×2 (08:33→20:52)
[2018-07-23] MEDS: amiodarone 200mg tablet PO SCH (08:33)
[2018-07-23] MEDS: famotidine 20mg tablet PO SCH ×2 (08:34→20:52)
[2018-07-23] MEDS: baclofen 10mg tablet PO SCH ×2 (08:35→20:52)
[2018-07-23] MEDS: clopidogrel 75mg tablet PO SCH (08:35)
[2018-07-23] MEDS: potassium Cl 20 mEq SR tablet PO SCH (08:35)
[2018-07-23] MEDS: morphine 2 MG/ML inj. syringe IV PRN ×3 (08:40→21:03)
[2018-07-23] MEDS: ferrous sulfate ER tablet 140 MG TABLET.ER PO SCH (09:13)
[2018-07-23] MEDS: pravastatin 40mg tablet PO SCH (09:13)
[2018-07-23 10:00] VITALS: BP 171/95
[2018-07-23] MEDS ORDERED: nitroGLYCERIN 0.2mg/hour patch TD SCH (16:45)
[2018-07-23] MEDS: sodium chloride 0.45% 1,000 ML IV SCH (17:04)
[2018-07-23 18:00] VITALS: BP 143/86
[2018-07-23 20:50] VITALS: BP 122/78
[2018-07-23] MEDS: enoxaparin 60mg/0.6ml syringe SUBCUT SCH (20:52)
[2018-07-23] MEDS: diatr meglu/diatrizoate 30ml oral sol.-(3 dose) bottle PO SCH (20:53)
[2018-07-23 22:00] VITALS: BP 107/80
[2018-07-24] MEDS: sodium chloride 0.45% 1,000 ML IV SCH ×2 (04:23→19:27)
[2018-07-24] MEDS: morphine 2 MG/ML inj. syringe IV PRN ×3 (04:25→18:50)
[2018-07-24 06:00] VITALS: BP 127/90
[2018-07-24 06:09] LABS: BASOPHILS % (AUTO) 0.3 % (0-1); EOSINOPHILS # (AUTO) 0.1 X10'3 (0-0.9); EOSINOPHILS % (AUTO) 1.9 % (0-6); HEMATOCRIT 27.2 % (42.0-52.0); HEMOGLOBIN 8.6 g/dl (14.0-17.9); LYMPHOCYTES # (AUTO) 0.8 X10'3 (1.1-4.8); LYMPHOCYTES % (AUTO) 17.3 % (21-51); MEAN CORPUSCULAR HEMOGLOBIN 25.2 PG (27.0-31.0); MEAN CORPUSCULAR HGB CONC 31.8 % (33.0-36.5); MEAN CORPUSCULAR VOLUME 79.2 FL (78-98); MEAN PLATELET VOLUME 6.5 FL (7.4-10.4); MONOCYTES # (AUTO) 0.6 X10'3 (0-0.9); MONOCYTES % (AUTO) 12.4 % (2-12); NEUTROPHILS # (AUTO) 3.1 X10'3 (1.8-7.7); NEUTROPHILS % (AUTO) 68.1 % (42-75); PLATELET COUNT 284 X10'3 (140-440); RED BLOOD COUNT 3.43 X10'6 (4.70-6.10); RED CELL DISTRIBUTION WIDTH 18.2 % (11.5-14.5); WHITE BLOOD COUNT 4.6 X10'3 (4.5-11.0)
[2018-07-24 06:35] LABS: ALBUMIN 3.3 G/DL (3.4-5.0); ANION GAP 6 (8-16); BLOOD UREA NITROGEN 13 MG/DL (7-18); BUN/CREATININE RATIO 15.7 (5.4-32.0); CALCIUM 8.5 MG/DL (8.5-10.1); CHLORIDE 104 MMOL/L (99-107); CREATININE 0.83 MG/DL (0.60-1.10); GLUCOSE 96 MG/DL (70-104); POTASSIUM 3.8 MMOL/L (3.5-5.1); SODIUM 138 MMOL/L (135-145); TOTAL CARBON DIOXIDE 27.8 MMOL/L (24-32); eGFR > 90 ML/MIN
[2018-07-24] MEDS: diatr meglu/diatrizoate 30ml oral sol.-(3 dose) bottle PO SCH ×2 (07:14→09:03)
[2018-07-24] MEDS: pravastatin 40mg tablet PO SCH (07:15)
[2018-07-24] MEDS: carVEDilol 3.125mg tablet PO SCH ×2 (07:15→19:25)
[2018-07-24] MEDS: clopidogrel 75mg tablet PO SCH (07:15)
[2018-07-24] MEDS: potassium Cl 20 mEq SR tablet PO SCH (07:16)
[2018-07-24] MEDS: ferrous sulfate ER tablet 140 MG TABLET.ER PO SCH (07:16)
[2018-07-24] MEDS: famotidine 20mg tablet PO SCH ×2 (07:16→19:24)
[2018-07-24] MEDS: amiodarone 200mg tablet PO SCH (07:17)
[2018-07-24] MEDS: baclofen 10mg tablet PO SCH ×2 (07:17→19:24)
[2018-07-24] MEDS: spironolactone 25 MG tablet PO SCH ×2 (07:17→19:25)
[2018-07-24] MEDS: docusate sod 100mg capsule PO SCH ×2 (07:17→19:24)
[2018-07-24] MEDS: enoxaparin 60mg/0.6ml syringe SUBCUT SCH ×2 (07:18→19:35)
[2018-07-24 10:00] VITALS: BP 164/99
[2018-07-24 19:00] VITALS: BP 161/104
[2018-07-24] MEDS: nitroGLYCERIN 0.2mg/hour patch TD SCH (19:25)
[2018-07-24 22:00] VITALS: BP 157/98
[2018-07-25] MEDS: morphine 2 MG/ML inj. syringe IV PRN ×2 (00:38→19:12)
[2018-07-25] MEDS: ondansetron/PF 4mg/2ml inj IV PRN ×4 (00:39→19:07)
[2018-07-25 06:00] VITALS: BP 162/107
[2018-07-25 06:36] LABS: BASOPHILS % (AUTO) 0.2 % (0-1); EOSINOPHILS # (AUTO) 0.1 X10'3 (0-0.9); EOSINOPHILS % (AUTO) 1.1 % (0-6); HEMATOCRIT 28.6 % (42.0-52.0); LYMPHOCYTES # (AUTO) 0.7 X10'3 (1.1-4.8); LYMPHOCYTES % (AUTO) 14.9 % (21-51); MEAN CORPUSCULAR HEMOGLOBIN 25.1 PG (27.0-31.0); MEAN CORPUSCULAR HGB CONC 31.5 % (33.0-36.5); MEAN CORPUSCULAR VOLUME 79.6 FL (78-98); MEAN PLATELET VOLUME 6.8 FL (7.4-10.4); MONOCYTES # (AUTO) 0.6 X10'3 (0-0.9); NEUTROPHILS # (AUTO) 3.4 X10'3 (1.8-7.7); NEUTROPHILS % (AUTO) 70.8 % (42-75); PLATELET COUNT 274 X10'3 (140-440); RED BLOOD COUNT 3.59 X10'6 (4.70-6.10); RED CELL DISTRIBUTION WIDTH 17.9 % (11.5-14.5); WHITE BLOOD COUNT 4.8 X10'3 (4.5-11.0)
[2018-07-25 06:45] LABS: ALBUMIN 3.5 G/DL (3.4-5.0); ANION GAP 11 (8-16); BLOOD UREA NITROGEN 14 MG/DL (7-18); BUN/CREATININE RATIO 17.3 (5.4-32.0); CALCIUM 8.7 MG/DL (8.5-10.1); CHLORIDE 102 MMOL/L (99-107); CREATININE 0.81 MG/DL (0.60-1.10); GLUCOSE 108 MG/DL (70-104); POTASSIUM 3.7 MMOL/L (3.5-5.1); SODIUM 138 MMOL/L (135-145); TOTAL CARBON DIOXIDE 25.1 MMOL/L (24-32); eGFR > 90 ML/MIN
[2018-07-25] MEDS: spironolactone 25 MG tablet PO SCH ×2 (07:44→19:18)
[2018-07-25] MEDS: amiodarone 200mg tablet PO SCH (07:44)
[2018-07-25] MEDS: potassium Cl 20 mEq SR tablet PO SCH (07:45)
[2018-07-25] MEDS: baclofen 10mg tablet PO SCH ×2 (07:45→19:19)
[2018-07-25] MEDS: famotidine 20mg tablet PO SCH ×2 (07:45→19:18)
[2018-07-25] MEDS: docusate sod 100mg capsule PO SCH ×2 (07:45→19:16)
[2018-07-25] MEDS: pravastatin 40mg tablet PO SCH (07:45)
[2018-07-25] MEDS: ferrous sulfate ER tablet 140 MG TABLET.ER PO SCH (07:45)
[2018-07-25] MEDS: clopidogrel 75mg tablet PO SCH (07:45)
[2018-07-25] MEDS: carVEDilol 3.125mg tablet PO SCH ×2 (07:45→19:19)
[2018-07-25] MEDS: enoxaparin 60mg/0.6ml syringe SUBCUT SCH ×2 (07:46→19:19)
[2018-07-25] MEDS ORDERED: diatr meglu/diatrizoate 30ml oral sol.-(3 dose) bottle PO ONE (08:50)
[2018-07-25 10:00] VITALS: BP 159/105
[2018-07-25] MEDS ORDERED: metoclopramide 5 mg/ml inj IV ONE (10:45)
[2018-07-25] MEDS: sodium chloride 0.45% 1,000 ML IV SCH ×2 (10:49→23:14)
[2018-07-25 18:00] VITALS: BP 171/112
[2018-07-25] MEDS: nitroGLYCERIN 0.2mg/hour patch TD SCH (18:47)
[2018-07-25 22:00] VITALS: BP 171/104
[2018-07-25 23:28] VITALS: BP 146/95
[2018-07-26 01:13] VITALS: BP 154/94
[2018-07-26] MEDS: morphine 2 MG/ML inj. syringe IV PRN ×2 (02:42→13:02)
[2018-07-26] MEDS: ondansetron/PF 4mg/2ml inj IV PRN (03:26)
[2018-07-26] MEDS ORDERED: acetaminophen 650mg rectal suppository RC PRN (05:30)
[2018-07-26 06:00] VITALS: BP 153/94
[2018-07-26] MEDS: amiodarone 200mg tablet PO SCH (07:17)
[2018-07-26] MEDS: famotidine 20mg tablet PO SCH ×2 (07:17→19:28)
[2018-07-26] MEDS: potassium Cl 20 mEq SR tablet PO SCH (07:17)
[2018-07-26] MEDS: carVEDilol 3.125mg tablet PO SCH ×2 (07:17→19:28)
[2018-07-26] MEDS: spironolactone 25 MG tablet PO SCH ×2 (07:17→19:28)
[2018-07-26] MEDS: clopidogrel 75mg tablet PO SCH (08:00)
[2018-07-26] MEDS: ferrous sulfate ER tablet 140 MG TABLET.ER PO SCH (08:00)
[2018-07-26] MEDS: docusate sod 100mg capsule PO SCH ×2 (08:00→19:38)
[2018-07-26] MEDS: pravastatin 40mg tablet PO SCH (08:00)
[2018-07-26] MEDS: baclofen 10mg tablet PO SCH ×2 (08:00→19:38)
[2018-07-26] MEDS: enoxaparin 60mg/0.6ml syringe SUBCUT SCH ×2 (08:00→19:29)
[2018-07-26 08:10] LABS: ANION GAP 11 (8-16); BLOOD UREA NITROGEN 16 MG/DL (7-18); BUN/CREATININE RATIO 19.3 (5.4-32.0); CALCIUM 8.3 MG/DL (8.5-10.1); CHLORIDE 102 MMOL/L (99-107); CREATININE 0.83 MG/DL (0.60-1.10); GLUCOSE 104 MG/DL (70-104); POTASSIUM 3.4 MMOL/L (3.5-5.1); SODIUM 140 MMOL/L (135-145); TOTAL CARBON DIOXIDE 27.2 MMOL/L (24-32); eGFR > 90 ML/MIN
[2018-07-26 08:20] LABS: HEMATOCRIT 26.6 % (42.0-52.0); HEMOGLOBIN 8.6 g/dl (14.0-17.9); MEAN CORPUSCULAR HEMOGLOBIN 25.4 PG (27.0-31.0); MEAN CORPUSCULAR HGB CONC 32.2 % (33.0-36.5); MEAN CORPUSCULAR VOLUME 78.7 FL (78-98); MEAN PLATELET VOLUME 7.2 FL (7.4-10.4); PLATELET COUNT 261 X10'3 (140-440); RED BLOOD COUNT 3.38 X10'6 (4.70-6.10); RED CELL DISTRIBUTION WIDTH 18.4 % (11.5-14.5); WHITE BLOOD COUNT 2.7 X10'3 (4.5-11.0)
[2018-07-26] MEDS ORDERED: potassium Cl 20 mEq SR tablet PO PRN ×2 (08:35)
[2018-07-26] MEDS ORDERED: potassium Cl 40MEQ/NS 500ml 500 ML IV PRN ×2 (08:35)
[2018-07-26 09:32] LABS: TOTAL CELLS COUNTED 100
[2018-07-26 09:33] LABS: PLATELET ESTIMATE NORMAL; SMUDGE CELLS 1+
[2018-07-26 09:34] LABS: POLYCHROMASIA FEW; SCHISTOCYTES FEW
[2018-07-26 09:35] LABS: ROULEAUX 1+
[2018-07-26 09:36] LABS: ANISOCYTOSIS 2+
[2018-07-26 10:00] VITALS: BP 160/94
[2018-07-26] MEDS ORDERED: labetalol 20mg/4ml (5mg/ml) syringe IV PRN (10:45)
[2018-07-26] MEDS: hydrALAZINE 20mg/ml inj. IV PRN ×2 (11:54→17:23)
[2018-07-26] MEDS: sodium chloride 0.45% 1,000 ML IV SCH ×2 (12:59→22:27)
[2018-07-26 18:00] VITALS: BP 164/111
[2018-07-26] MEDS: nitroGLYCERIN 0.2mg/hour patch TD SCH (19:24)
[2018-07-26 20:31] VITALS: BP 132/82
[2018-07-26 22:00] VITALS: BP 118/81
[2018-07-27] VITALS (19 sets, daily range): BP systolic 136–166; BP diastolic 85–98
[2018-07-27 06:17] LABS: BASOPHILS % (AUTO) 0.3 % (0-1); EOSINOPHILS # (AUTO) 0.1 X10'3 (0-0.9); EOSINOPHILS % (AUTO) 2.5 % (0-6); HEMATOCRIT 25.8 % (42.0-52.0); HEMOGLOBIN 8.2 g/dl (14.0-17.9); LYMPHOCYTES # (AUTO) 0.9 X10'3 (1.1-4.8); LYMPHOCYTES % (AUTO) 23.4 % (21-51); MEAN CORPUSCULAR HEMOGLOBIN 25.2 PG (27.0-31.0); MEAN CORPUSCULAR HGB CONC 31.8 % (33.0-36.5); MEAN CORPUSCULAR VOLUME 79.3 FL (78-98); MONOCYTES # (AUTO) 0.7 X10'3 (0-0.9); MONOCYTES % (AUTO) 16.2 % (2-12); NEUTROPHILS # (AUTO) 2.3 X10'3 (1.8-7.7); NEUTROPHILS % (AUTO) 57.6 % (42-75); PLATELET COUNT 250 X10'3 (140-440); RED BLOOD COUNT 3.25 X10'6 (4.70-6.10); RED CELL DISTRIBUTION WIDTH 18.7 % (11.5-14.5)
[2018-07-27 06:22] LABS: ALBUMIN 2.8 G/DL (3.4-5.0); ANION GAP 10 (8-16); BLOOD UREA NITROGEN 15 MG/DL (7-18); BUN/CREATININE RATIO 18.3 (5.4-32.0); CALCIUM 8.1 MG/DL (8.5-10.1); CHLORIDE 104 MMOL/L (99-107); CREATININE 0.82 MG/DL (0.60-1.10); GLUCOSE 74 MG/DL (70-104); POTASSIUM 3.7 MMOL/L (3.5-5.1); SODIUM 139 MMOL/L (135-145); TOTAL CARBON DIOXIDE 25.5 MMOL/L (24-32); eGFR > 90 ML/MIN
[2018-07-27 06:51] LABS: ANISOCYTOSIS 2+; NUCLEATED RED BLOOD CELLS 1 /100WBC (0-0); PLATELET ESTIMATE NORMAL; TOTAL CELLS COUNTED 100
[2018-07-27 06:52] LABS: SMUDGE CELLS 1+; TARGET CELLS FEW
[2018-07-27] MEDS: ferrous sulfate ER tablet 140 MG TABLET.ER PO SCH (07:06)
[2018-07-27] MEDS: clopidogrel 75mg tablet PO SCH (07:06)
[2018-07-27] MEDS: docusate sod 100mg capsule PO SCH ×2 (07:06→20:00)
[2018-07-27] MEDS: baclofen 10mg tablet PO SCH ×2 (07:06→20:00)
[2018-07-27] MEDS: pravastatin 40mg tablet PO SCH (07:07)
[2018-07-27] MEDS: enoxaparin 60mg/0.6ml syringe SUBCUT SCH ×2 (07:07→20:10)
[2018-07-27] MEDS: famotidine 20mg tablet PO SCH ×2 (07:13→20:00)
[2018-07-27] MEDS: potassium Cl 20 mEq SR tablet PO SCH (07:13)
[2018-07-27] MEDS: carVEDilol 3.125mg tablet PO SCH ×2 (07:13→20:00)
[2018-07-27] MEDS: amiodarone 200mg tablet PO SCH (07:13)
[2018-07-27] MEDS: spironolactone 25 MG tablet PO SCH ×2 (07:13→20:00)
[2018-07-27] MEDS: sodium chloride 0.45% 1,000 ML IV SCH (07:15)
[2018-07-27] MEDS ORDERED: ROPIVAcaine 0.5% (5mg/ml) 30ml vial ONE (09:01)
[2018-07-27] MEDS ORDERED: propofol inj 20 ML IV ONE (09:18)
[2018-07-27] MEDS ORDERED: rocuronium 10mg/ml inj IV ONE (09:18)
[2018-07-27] MEDS ORDERED: sevoflurane 250ml liquid IH ONE (09:18)
[2018-07-27] MEDS ORDERED: fentaNYL /PF 50mcg/ml 5ml ampule ONE (09:18)
[2018-07-27] MEDS ORDERED: ceFOXitin 1000 MG inj ONE (09:36)
[2018-07-27] MEDS: BUPIVAcaine/PF 2.5mg/ml (0.25%) 10ml vial ONE ×2 (09:49→10:40)
[2018-07-27] MEDS: LIDOcaine 1% 30ml preserv. free vial ONE ×2 (09:49→10:40)
[2018-07-27] MEDS ORDERED: ringers solution, lacted 1,000 ML IV SCH (09:53)
[2018-07-27] MEDS ORDERED: morphine 4 MG/ML inj SYRINge IV PRN ×2 (09:55)
[2018-07-27] MEDS ORDERED: proCHLORperazine 10 MG/2 ml inj IV PRN (09:55)
[2018-07-27] MEDS ORDERED: meperidine/PF 25mg/ml syringe IV PRN ×2 (09:55)
[2018-07-27] MEDS ORDERED: labetalol 20mg/4ml (5mg/ml) syringe IV PRN (09:55)
[2018-07-27] MEDS ORDERED: ondansetron/PF 4mg/2ml inj IV PRN (09:55)
[2018-07-27] MEDS ORDERED: neostigmine methylsulfate 1 MG/ML 10ml vial ONE (10:18)
[2018-07-27] MEDS ORDERED: glycopyrrolate 0.2mg/ml inj ONE (10:18)
[2018-07-27] MEDS: meperidine/PF 25mg/ml syringe IV PRN ×2 (10:51→10:58)
[2018-07-27] MEDS ORDERED: dextrose ORAL solution 15 GM/59 ML bottle PO PRN ×2 (13:25)
[2018-07-27] MEDS ORDERED: dextrose 50%-water 50ml dispensing syringe IV PRN ×2 (13:25)
[2018-07-27] MEDS ORDERED: glucagon, human recombinant 1mg kit SUBCUT PRN (13:25)
[2018-07-27] MEDS: dextrose 5%-1/2 normal saline 1,000 ML IV SCH (13:48)
[2018-07-27] MEDS: ketorolac tromethamine 15mg/ml inj. IV PRN ×2 (13:52→20:09)
[2018-07-27] MEDS: hydrALAZINE 20mg/ml inj. IV PRN (20:09)
[2018-07-27] MEDS: nitroGLYCERIN 0.2mg/hour patch TD SCH (21:26)
[2018-07-28 01:18] VITALS: BP 154/101
[2018-07-28] MEDS: dextrose 5%-1/2 normal saline 1,000 ML IV SCH ×2 (01:52→15:11)
[2018-07-28 04:01] VITALS: BP 149/97
[2018-07-28] MEDS: morphine 2 MG/ML inj. syringe IV PRN ×2 (05:09→08:25)
[2018-07-28 05:55] LABS: BASOPHILS % (AUTO) 0.1 % (0-1); EOSINOPHILS % (AUTO) 0.3 % (0-6); HEMATOCRIT 29.5 % (42.0-52.0); HEMOGLOBIN 9.4 g/dl (14.0-17.9); LYMPHOCYTES # (AUTO) 0.9 X10'3 (1.1-4.8); MEAN CORPUSCULAR HEMOGLOBIN 25.2 PG (27.0-31.0); MEAN CORPUSCULAR HGB CONC 31.9 % (33.0-36.5); MEAN CORPUSCULAR VOLUME 79.1 FL (78-98); MEAN PLATELET VOLUME 7.3 FL (7.4-10.4); MONOCYTES # (AUTO) 0.6 X10'3 (0-0.9); MONOCYTES % (AUTO) 10.3 % (2-12); NEUTROPHILS # (AUTO) 4.3 X10'3 (1.8-7.7); NEUTROPHILS % (AUTO) 74.3 % (42-75); PLATELET COUNT 274 X10'3 (140-440); RED BLOOD COUNT 3.73 X10'6 (4.70-6.10); RED CELL DISTRIBUTION WIDTH 19.1 % (11.5-14.5); WHITE BLOOD COUNT 5.8 X10'3 (4.5-11.0)
[2018-07-28 06:06] LABS: ALBUMIN 2.6 G/DL (3.4-5.0); ANION GAP 9 (8-16); BLOOD UREA NITROGEN 15 MG/DL (7-18); BUN/CREATININE RATIO 21.7 (5.4-32.0); CALCIUM 8.1 MG/DL (8.5-10.1); CHLORIDE 104 MMOL/L (99-107); CREATININE 0.69 MG/DL (0.60-1.10); GLUCOSE 93 MG/DL (70-104); POTASSIUM 3.8 MMOL/L (3.5-5.1); SODIUM 137 MMOL/L (135-145); TOTAL CARBON DIOXIDE 23.8 MMOL/L (24-32); eGFR > 90 ML/MIN
[2018-07-28 07:49] VITALS: BP 156/107
[2018-07-28] MEDS: pravastatin 40mg tablet PO SCH (08:00)
[2018-07-28] MEDS: ferrous sulfate ER tablet 140 MG TABLET.ER PO SCH (08:00)
[2018-07-28] MEDS: baclofen 10mg tablet PO SCH ×2 (08:00→19:26)
[2018-07-28] MEDS: famotidine 20mg tablet PO SCH ×2 (08:00→19:26)
[2018-07-28] MEDS: amiodarone 200mg tablet PO SCH (08:00)
[2018-07-28] MEDS: spironolactone 25 MG tablet PO SCH ×2 (08:00→19:25)
[2018-07-28] MEDS: potassium Cl 20 mEq SR tablet PO SCH (08:00)
[2018-07-28] MEDS: docusate sod 100mg capsule PO SCH ×2 (08:00→19:26)
[2018-07-28] MEDS: clopidogrel 75mg tablet PO SCH (08:00)
[2018-07-28] MEDS: enoxaparin 60mg/0.6ml syringe SUBCUT SCH ×2 (10:19→19:26)
[2018-07-28] MEDS: carVEDilol 3.125mg tablet PO SCH ×2 (10:19→19:26)
[2018-07-28 11:00] VITALS: BP 165/113
[2018-07-28] MEDS: hydrALAZINE 20mg/ml inj. IV PRN (11:56)
[2018-07-28 18:00] VITALS: BP 159/114
[2018-07-28] MEDS: nitroGLYCERIN 0.2mg/hour patch TD SCH (19:25)
[2018-07-28] MEDS: ketorolac tromethamine 15mg/ml inj. IV PRN (23:02)
[2018-07-29] VITALS: BP 146/104
[2018-07-29 07:22] VITALS: BP 150/97
[2018-07-29] MEDS: ferrous sulfate ER tablet 140 MG TABLET.ER PO SCH (08:13)
[2018-07-29] MEDS: docusate sod 100mg capsule PO SCH ×2 (08:13→20:00)
[2018-07-29] MEDS: clopidogrel 75mg tablet PO SCH (08:14)
[2018-07-29] MEDS: carVEDilol 3.125mg tablet PO SCH ×2 (08:14→19:58)
[2018-07-29] MEDS: famotidine 20mg tablet PO SCH ×2 (08:14→19:58)
[2018-07-29] MEDS: pravastatin 40mg tablet PO SCH (08:14)
[2018-07-29] MEDS: baclofen 10mg tablet PO SCH ×2 (08:14→19:58)
[2018-07-29] MEDS: amiodarone 200mg tablet PO SCH (08:14)
[2018-07-29] MEDS: spironolactone 25 MG tablet PO SCH ×2 (08:14→19:58)
[2018-07-29] MEDS: potassium Cl 20 mEq SR tablet PO SCH (08:14)
[2018-07-29] MEDS: enoxaparin 60mg/0.6ml syringe SUBCUT SCH ×2 (08:17→19:59)
[2018-07-29] MEDS: ketorolac tromethamine 15mg/ml inj. IV PRN ×2 (10:53→18:00)
[2018-07-29 11:41] VITALS: BP 149/92
[2018-07-29 19:57] VITALS: BP 154/101
[2018-07-29] MEDS: morphine 2 MG/ML inj. syringe IV PRN (20:06)
[2018-07-29 23:00] VITALS: BP 163/117
[2018-07-29 23:20] VITALS: BP 159/107
[2018-07-30] VITALS: BP 163/117
[2018-07-30] MEDS: ketorolac tromethamine 15mg/ml inj. IV PRN ×2 (02:10→09:00)
[2018-07-30 08:00] VITALS: BP 150/90
[2018-07-30] MEDS: potassium Cl 20 mEq SR tablet PO SCH (08:59)
[2018-07-30] MEDS: amiodarone 200mg tablet PO SCH (08:59)
[2018-07-30] MEDS: clopidogrel 75mg tablet PO SCH (08:59)
[2018-07-30] MEDS: baclofen 10mg tablet PO SCH (08:59)
[2018-07-30] MEDS: carVEDilol 3.125mg tablet PO SCH (08:59)
[2018-07-30] MEDS: famotidine 20mg tablet PO SCH (08:59)
[2018-07-30] MEDS: spironolactone 25 MG tablet PO SCH (08:59)
[2018-07-30] MEDS: docusate sod 100mg capsule PO SCH (08:59)
[2018-07-30] MEDS: enoxaparin 60mg/0.6ml syringe SUBCUT SCH (09:00)
[2018-07-30] MEDS: ferrous sulfate ER tablet 140 MG TABLET.ER PO SCH (09:02)
[2018-07-30] MEDS: pravastatin 40mg tablet PO SCH (09:03)
[2018-07-30 12:00] VITALS: BP 145/91
[2018-07-30] MEDS: morphine 2 MG/ML inj. syringe IV PRN (13:11)
== END 2018-07-30 16:00 | DRG 329 ==
LOC: ER 02:34 → ORTHO 4S 06:13 → CMPBEDREQ 07-26 19:43 → PAS IN 07-27 09:30 → SUR 3N 07-27 11:24
PROVIDERS: ADMIT Internal Medicine; ATTEND Internal Medicine
PROC: 0D9670Z Drainage of Stomach with Drainage Device, Via Natural or Artificial Opening (ICD-10-PCS; 2018-07-23)
PROC: 3E0T3BZ Introduction of Anesthetic Agent into Peripheral Nerves and Plexi, Percutaneous Approach (ICD-10-PCS; 2018-07-27)
PROC: 0DB80ZZ Excision of Small Intestine, Open Approach (ICD-10-PCS; principal; 2018-07-27 09:18)
DX: K91.89 Other postprocedural complications and disorders of digestive system (principal); G93.41 Metabolic encephalopathy; I71.02 Dissection of abdominal aorta; F05 Delirium due to known physiological condition; K56.51 Intestinal adhesions [bands], with partial obstruction; H54.62 Unqualified visual loss, left eye, normal vision right eye; I11.0 Hypertensive heart disease with heart failure; I25.10 Atherosclerotic heart disease of native coronary artery without angina pectoris; E11.649 Type 2 diabetes mellitus with hypoglycemia without coma; I48.91 Unspecified atrial fibrillation; Y83.8 Other surgical procedures as the cause of abnormal reaction of the patient, or of later complication, without mention of misadventure at the time of the procedure; I50.9 Heart failure, unspecified; Z60.2 Problems related to living alone; Z88.0 Allergy status to penicillin; Z88.2 Allergy status to sulfonamides; Z98.61 Coronary angioplasty status; Z79.899 Other long term (current) drug therapy; Z79.02 Long term (current) use of antithrombotics/antiplatelets; Z79.01 Long term (current) use of anticoagulants; Z86.79 Personal history of other diseases of the circulatory system; Y92.89 Other specified places as the place of occurrence of the external cause
CPT/HCPCS: 36415; 74176; 80048; 80053; 81003; 82948; 83690; 85025; 87070; 88307; 96361; 96374; 96375; 96376; 99285; A7000; C1758; G0378; J0360; J0694; J1650; J1885; J2175; J2270; J2405; J2704; J2710; J2765; J2795; J3010; J3480; J3490; J7030; J7120; Q9963

== ENCOUNTER 2018-08-12 21:35 | Inpatient (IN) | payer MEDICARE, MEDICAID ==
[~2018-08-12] VITALS: Ht 172.7 cm; Wt 64.1 kg
[~2018-08-12 21:35] MED LIST changes: +BACL10TA PO; +FERR140T2; +POLY255P19 PO; -POLY255P2 PO; +SPIR25TA5 PO
[2018-08-12] MEDS ORDERED: iohexol 300mg/ml 100ml inj. ONE (21:45)
[2018-08-12 22:10] LABS: BASOPHILS % (AUTO) 0.2 % (0-1); EOSINOPHILS # (AUTO) 0.2 X10'3 (0-0.9); EOSINOPHILS % (AUTO) 3.9 % (0-6); HEMATOCRIT 26.5 % (42.0-52.0); HEMOGLOBIN 8.4 g/dl (14.0-17.9); LYMPHOCYTES # (AUTO) 1.7 X10'3 (1.1-4.8); LYMPHOCYTES % (AUTO) 26.2 % (21-51); MEAN CORPUSCULAR HEMOGLOBIN 26.3 PG (27.0-31.0); MEAN CORPUSCULAR HGB CONC 31.8 % (33.0-36.5); MEAN CORPUSCULAR VOLUME 82.6 FL (78-98); MEAN PLATELET VOLUME 6.2 FL (7.4-10.4); MONOCYTES # (AUTO) 0.6 X10'3 (0-0.9); NEUTROPHILS # (AUTO) 3.8 X10'3 (1.8-7.7); NEUTROPHILS % (AUTO) 59.7 % (42-75); PLATELET COUNT 537 X10'3 (140-440); RED BLOOD COUNT 3.21 X10'6 (4.70-6.10); RED CELL DISTRIBUTION WIDTH 25.5 % (11.5-14.5); WHITE BLOOD COUNT 6.4 X10'3 (4.5-11.0)
[2018-08-12 22:20] LABS: ALANINE AMINOTRANSFERASE 47 U/L (12-78); ALBUMIN 3.2 G/DL (3.4-5.0); ALBUMIN/GLOBULIN RATIO 1.1 (1.1-1.5); ALKALINE PHOSPHATASE 101 IU/L (46-116); ANION GAP 15 (8-16); ASPARTATE AMINO TRANSFERASE 18 U/L (10-37); BILIRUBIN,TOTAL 0.3 MG/DL (0.1-1.0); BLOOD UREA NITROGEN 26 MG/DL (7-18); BUN/CREATININE RATIO 29.5 (5.4-32.0); CALCIUM 8.3 MG/DL (8.5-10.1); CHLORIDE 104 MMOL/L (99-107); CREATININE 0.88 MG/DL (0.60-1.10); GLUCOSE 99 MG/DL (70-104); LIPASE 1245 U/L (73-393); POTASSIUM 3.5 MMOL/L (3.5-5.1); SODIUM 141 MMOL/L (135-145); TOTAL CARBON DIOXIDE 22.3 MMOL/L (24-32); TOTAL PROTEIN 6.2 G/DL (6.4-8.2); eGFR 85 ML/MIN
[2018-08-12] MEDS ORDERED: normal saline 1000ML IV soln IVB ONE (22:25)
[2018-08-12 22:27] LABS: PLATELET ESTIMATE INCREASED
[2018-08-12 22:28] LABS: ACANTHOCYTES FEW; ANISOCYTOSIS 3+; POIKILOCYTOSIS 2+; SCHISTOCYTES FEW
[2018-08-12] MEDS ORDERED: CARV3.12 PO (23:57)
[2018-08-13] MEDS ORDERED: acetaminophen 325mg tablet PO PRN ×2 (00:20)
[2018-08-13] MEDS ORDERED: bisacodyl 10mg suppository rectal RC PRN (00:20)
[2018-08-13] MEDS ORDERED: mag hydrox/Alum hydrox/simeth 30ml oral suspension PO PRN (00:20)
[2018-08-13] MEDS ORDERED: diphenhydrAMINE 25mg capsule PO PRN (00:20)
[2018-08-13] MEDS ORDERED: diphenhydrAMINE 50 mg/ml inj IV PRN (00:20)
[2018-08-13] MEDS ORDERED: morphine 2 MG/ML inj. syringe IV PRN (00:20)
[2018-08-13] MEDS ORDERED: magnesium hydroxide 30ml (MOM) UD suspension PO PRN (00:20)
[2018-08-13] MEDS ORDERED: metoclopramide 5 mg/ml inj IV PRN (00:20)
[2018-08-13] MEDS ORDERED: ondansetron/PF 4mg/2ml inj IV PRN (00:20)
[2018-08-13] MEDS ORDERED: HYDROmorphone 1 mg/ml syringe IV PRN (00:20)
[2018-08-13] MEDS ORDERED: acetaminophen 650mg rectal suppository RC PRN (00:20)
[2018-08-13] MEDS ORDERED: glucagon, human recombinant 1mg kit SUBCUT PRN (00:25)
[2018-08-13] MEDS ORDERED: dextrose 50%-water 50ml dispensing syringe IV PRN ×2 (00:25)
[2018-08-13] MEDS ORDERED: MESSAGE TO PHARMACY PO ONE (00:25)
[2018-08-13] MEDS ORDERED: insulin Lispro (HumaLOG) vial - multi-dose SQ SCH (00:25)
[2018-08-13] MEDS ORDERED: dextrose ORAL solution 15 GM/59 ML bottle PO PRN ×2 (00:25)
[2018-08-13] MEDS: normal saline 1000ml 1,000 ML IV SCH ×3 (00:48→19:43)
[2018-08-13 00:57] LABS: HEMOGLOBIN A1C 5.9 % (4.5-6.2)
[2018-08-13 00:58] LABS: PHOSPHORUS 3.8 MG/DL (2.3-4.5); TROPONIN I < 0.04 NG/ML (0.0-0.05)
[2018-08-13 01:08] LABS: CLARITY,URINE CLEAR (Clear); COLOR,URINE YELLOW (Yellow); GLUCOSE, URINE NEGATIVE (Neg); KETONES,URINE NEGATIVE (Neg); LEUKOCYTE ESTERASE ,URINE NEGATIVE (Neg); NITRITES, URINE NEGATIVE (Neg); OCCULT BLOOD,URINE NEGATIVE (Neg); PH,URINE 5.5 (4.8-8.0); PROTEIN,URINE NEGATIVE (Neg); UROBILINOGEN,URINE 0.2 E.U/dL (0.2-1.0)
[2018-08-13 01:19] LABS: UA COLLECTION TYPE CLN CATCH MIDSTREAM
[2018-08-13] MEDS ORDERED: pravastatin 40mg tablet PO SCH (08:00)
[2018-08-13] MEDS: pantoprazole 40 MG vial IV SCH ×2 (10:04→19:36)
[2018-08-13] MEDS: clopidogrel 75mg tablet PO SCH (10:04)
[2018-08-13] MEDS: docusate sod 100mg capsule PO SCH ×4 (10:04→19:54)
[2018-08-13] MEDS: amiodarone 200mg tablet PO SCH (10:04)
[2018-08-13] MEDS: famotidine 20mg tablet PO SCH ×2 (10:05→19:36)
[2018-08-13] MEDS: apixaban 2.5mg tablet PO SCH ×2 (10:26→19:36)
[2018-08-13] MEDS ORDERED: magnesium hydroxide 30ml (MOM) UD suspension PO ONE (12:50)
[2018-08-13 13:30] VITALS: BP 173/97
[2018-08-13] MEDS ORDERED: furosemide 40mg/4ml inj IV ONE (13:50)
[2018-08-13 15:10] VITALS: BP 151/86
[2018-08-13 19:00] VITALS: BP 157/90
[2018-08-13] MEDS: magnesium hydroxide 30ml (MOM) UD suspension PO SCH (19:36)
[2018-08-13] MEDS ORDERED: temazepam 15mg capsule PO PRN (21:00)
[2018-08-13] MEDS: dextrose 5%-normal saline 1,000 ML IV SCH (23:19)
[2018-08-14] VITALS: BP 150/80
[2018-08-14 04:20] LABS: OCCULT BLOOD STOOL NEGATIVE (Neg)
[2018-08-14 05:40] LABS: ALANINE AMINOTRANSFERASE 37 U/L (12-78); ALBUMIN 2.9 G/DL (3.4-5.0); ALKALINE PHOSPHATASE 104 IU/L (46-116); ANION GAP 10 (8-16); ASPARTATE AMINO TRANSFERASE 14 U/L (10-37); BILIRUBIN,TOTAL 0.4 MG/DL (0.1-1.0); BLOOD UREA NITROGEN 12 MG/DL (7-18); BUN/CREATININE RATIO 15.8 (5.4-32.0); CALCIUM 7.5 MG/DL (8.5-10.1); CHLORIDE 108 MMOL/L (99-107); CREATININE 0.76 MG/DL (0.60-1.10); GLUCOSE 101 MG/DL (70-104); POTASSIUM 3.1 MMOL/L (3.5-5.1); SODIUM 143 MMOL/L (135-145); TOTAL CARBON DIOXIDE 24.7 MMOL/L (24-32); TOTAL PROTEIN 5.7 G/DL (6.4-8.2); eGFR > 90 ML/MIN
[2018-08-14 05:49] LABS: BASOPHILS % (AUTO) 0.6 % (0-1); EOSINOPHILS # (AUTO) 0.3 X10'3 (0-0.9); EOSINOPHILS % (AUTO) 4.6 % (0-6); HEMATOCRIT 28.1 % (42.0-52.0); LYMPHOCYTES # (AUTO) 1.1 X10'3 (1.1-4.8); LYMPHOCYTES % (AUTO) 16.1 % (21-51); MEAN CORPUSCULAR HEMOGLOBIN 26.7 PG (27.0-31.0); MEAN CORPUSCULAR HGB CONC 31.9 % (33.0-36.5); MEAN CORPUSCULAR VOLUME 83.6 FL (78-98); MEAN PLATELET VOLUME 6.5 FL (7.4-10.4); MONOCYTES # (AUTO) 0.5 X10'3 (0-0.9); NEUTROPHILS # (AUTO) 4.8 X10'3 (1.8-7.7); NEUTROPHILS % (AUTO) 70.7 % (42-75); PLATELET COUNT 456 X10'3 (140-440); RED BLOOD COUNT 3.37 X10'6 (4.70-6.10); RED CELL DISTRIBUTION WIDTH 26.4 % (11.5-14.5); WHITE BLOOD COUNT 6.8 X10'3 (4.5-11.0)
[2018-08-14 07:00] VITALS: BP 144/91
[2018-08-14] MEDS ORDERED: HYDROcodone/acetaminophen 10/325mg tab PO PRN (07:20)
[2018-08-14] MEDS: docusate sod 100mg capsule PO SCH ×3 (08:00→19:33)
[2018-08-14] MEDS ORDERED: polyethylene glycol 3350 17gm powd pack PO PRN (08:00)
[2018-08-14] MEDS: apixaban 2.5mg tablet PO SCH ×2 (08:08→19:34)
[2018-08-14] MEDS: famotidine 20mg tablet PO SCH ×2 (08:08→19:34)
[2018-08-14] MEDS: magnesium hydroxide 30ml (MOM) UD suspension PO SCH ×3 (08:08→19:32)
[2018-08-14] MEDS: pantoprazole 40 MG vial IV SCH ×2 (08:08→19:32)
[2018-08-14] MEDS: clopidogrel 75mg tablet PO SCH (08:08)
[2018-08-14] MEDS: carVEDilol 3.125mg tablet PO SCH ×2 (08:09→19:34)
[2018-08-14] MEDS: atorvastatin 10mg tablet PO SCH (08:09)
[2018-08-14] MEDS: potassium Cl 20 mEq SR tablet PO SCH (08:09)
[2018-08-14] MEDS: baclofen 10mg tablet PO SCH ×2 (08:09→19:34)
[2018-08-14] MEDS: amiodarone 200mg tablet PO SCH (08:09)
[2018-08-14] MEDS: dextrose 5%-normal saline 1,000 ML IV SCH ×2 (09:03→19:31)
[2018-08-14 09:14] LABS: ANISOCYTOSIS 3+; MICROCYTOSIS 1+; PLATELET ESTIMATE INCREASED
[2018-08-14 09:15] LABS: HYPOCHROMASIA 1+; POIKILOCYTOSIS FEW; POLYCHROMASIA FEW; SCHISTOCYTES FEW
[2018-08-14] MEDS ORDERED: magnesium Cl slow-release 64mg tablet PO PRN (10:15)
[2018-08-14] MEDS ORDERED: potassium Cl 40MEQ/NS 500ml 500 ML IV PRN ×2 (10:15)
[2018-08-14] MEDS ORDERED: magnesium 4gm in 100ml NS 100 ML IV PRN (10:15)
[2018-08-14] MEDS ORDERED: magnesium 2GM in 50ml NS 50 ML IV PRN (10:15)
[2018-08-14] MEDS ORDERED: potassium Cl 20 mEq SR tablet PO PRN (10:15)
[2018-08-14] MEDS: fluticasone nasal spray 16GM bottle NS SCH (11:04)
[2018-08-14 12:57] VITALS: BP 162/99
[2018-08-14] MEDS: potassium Cl 20 mEq SR tablet PO PRN ×3 (13:38→23:46)
[2018-08-14 18:00] VITALS: BP 173/98
[2018-08-14] MEDS: HYDROcodone/acetaminophen 10/325mg tab PO PRN (19:33)
[2018-08-14 21:00] VITALS: BP 158/79
[2018-08-15] VITALS: BP 136/86
[2018-08-15] MEDS: dextrose 5%-normal saline 1,000 ML IV SCH ×2 (03:24→15:39)
[2018-08-15] MEDS: HYDROcodone/acetaminophen 10/325mg tab PO PRN ×2 (03:26→19:32)
[2018-08-15 05:41] LABS: BASOPHILS % (AUTO) 0.3 % (0-1); EOSINOPHILS # (AUTO) 0.2 X10'3 (0-0.9); EOSINOPHILS % (AUTO) 3.8 % (0-6); HEMATOCRIT 26.9 % (42.0-52.0); HEMOGLOBIN 8.5 g/dl (14.0-17.9); LYMPHOCYTES # (AUTO) 0.9 X10'3 (1.1-4.8); LYMPHOCYTES % (AUTO) 15.8 % (21-51); MEAN CORPUSCULAR HEMOGLOBIN 26.5 PG (27.0-31.0); MEAN CORPUSCULAR HGB CONC 31.4 % (33.0-36.5); MEAN CORPUSCULAR VOLUME 84.3 FL (78-98); MEAN PLATELET VOLUME 6.4 FL (7.4-10.4); MONOCYTES # (AUTO) 0.3 X10'3 (0-0.9); NEUTROPHILS # (AUTO) 4.1 X10'3 (1.8-7.7); NEUTROPHILS % (AUTO) 74.1 % (42-75); PLATELET COUNT 398 X10'3 (140-440); RED BLOOD COUNT 3.19 X10'6 (4.70-6.10); WHITE BLOOD COUNT 5.5 X10'3 (4.5-11.0)
[2018-08-15 05:57] LABS: ALANINE AMINOTRANSFERASE 27 U/L (12-78); ALBUMIN 2.6 G/DL (3.4-5.0); ALKALINE PHOSPHATASE 91 IU/L (46-116); ANION GAP 7 (8-16); ASPARTATE AMINO TRANSFERASE 13 U/L (10-37); BILIRUBIN,TOTAL 0.3 MG/DL (0.1-1.0); BLOOD UREA NITROGEN 10 MG/DL (7-18); BUN/CREATININE RATIO 13.7 (5.4-32.0); CALCIUM 7.3 MG/DL (8.5-10.1); CHLORIDE 110 MMOL/L (99-107); CREATININE 0.73 MG/DL (0.60-1.10); GLUCOSE 108 MG/DL (70-104); MAGNESIUM 2.5 MG/DL (1.5-2.4); POTASSIUM 4.6 MMOL/L (3.5-5.1); SODIUM 140 MMOL/L (135-145); TOTAL CARBON DIOXIDE 23.3 MMOL/L (24-32); TOTAL PROTEIN 5.3 G/DL (6.4-8.2); eGFR > 90 ML/MIN
[2018-08-15 07:51] VITALS: BP 169/74
[2018-08-15] MEDS: fluticasone nasal spray 16GM bottle NS SCH (08:00)
[2018-08-15] MEDS: clopidogrel 75mg tablet PO SCH (08:15)
[2018-08-15] MEDS: baclofen 10mg tablet PO SCH ×2 (08:15→19:19)
[2018-08-15] MEDS: pantoprazole 40 MG vial IV SCH ×2 (08:15→19:18)
[2018-08-15] MEDS: atorvastatin 10mg tablet PO SCH (08:15)
[2018-08-15] MEDS: docusate sod 100mg capsule PO SCH ×2 (08:15→19:19)
[2018-08-15] MEDS: apixaban 2.5mg tablet PO SCH ×2 (08:15→19:19)
[2018-08-15] MEDS: famotidine 20mg tablet PO SCH ×2 (08:15→19:19)
[2018-08-15] MEDS: potassium Cl 20 mEq SR tablet PO SCH (08:15)
[2018-08-15] MEDS: magnesium hydroxide 30ml (MOM) UD suspension PO SCH ×2 (08:16→19:20)
[2018-08-15] MEDS: amiodarone 200mg tablet PO SCH (08:16)
[2018-08-15] MEDS: carVEDilol 3.125mg tablet PO SCH ×2 (08:16→19:19)
[2018-08-15 09:40] LABS: LIPASE 644 U/L (73-393)
[2018-08-15 09:51] LABS: PLATELET ESTIMATE NORMAL
[2018-08-15 09:52] LABS: ACANTHOCYTES 1+; ANISOCYTOSIS 3+; BURR CELLS 1+; HYPOCHROMASIA 1+; POLYCHROMASIA 1+; SCHISTOCYTES FEW
[2018-08-15] MEDS ORDERED: PANT-47 PO (12:39)
[2018-08-15 12:43] VITALS: BP 147/95
[2018-08-15 19:15] VITALS: BP 172/100
[2018-08-15 23:30] VITALS: BP 146/84
[2018-08-16] MEDS: dextrose 5%-normal saline 1,000 ML IV SCH ×2 (01:17→10:50)
[2018-08-16 05:11] LABS: BASOPHILS % (AUTO) 0.3 % (0-1); EOSINOPHILS # (AUTO) 0.3 X10'3 (0-0.9); EOSINOPHILS % (AUTO) 4.7 % (0-6); HEMATOCRIT 28.5 % (42.0-52.0); LYMPHOCYTES # (AUTO) 1.1 X10'3 (1.1-4.8); LYMPHOCYTES % (AUTO) 15.6 % (21-51); MEAN CORPUSCULAR HEMOGLOBIN 26.6 PG (27.0-31.0); MEAN CORPUSCULAR HGB CONC 31.5 % (33.0-36.5); MEAN CORPUSCULAR VOLUME 84.3 FL (78-98); MONOCYTES # (AUTO) 0.5 X10'3 (0-0.9); MONOCYTES % (AUTO) 6.9 % (2-12); NEUTROPHILS # (AUTO) 4.9 X10'3 (1.8-7.7); NEUTROPHILS % (AUTO) 72.5 % (42-75); PLATELET COUNT 360 X10'3 (140-440); RED BLOOD COUNT 3.38 X10'6 (4.70-6.10); RED CELL DISTRIBUTION WIDTH 26.3 % (11.5-14.5); WHITE BLOOD COUNT 6.7 X10'3 (4.5-11.0)
[2018-08-16 05:27] LABS: ALANINE AMINOTRANSFERASE 26 U/L (12-78); ALBUMIN 2.8 G/DL (3.4-5.0); ALKALINE PHOSPHATASE 107 IU/L (46-116); ANION GAP 9 (8-16); ASPARTATE AMINO TRANSFERASE 14 U/L (10-37); BILIRUBIN,TOTAL 0.4 MG/DL (0.1-1.0); BLOOD UREA NITROGEN 8 MG/DL (7-18); BUN/CREATININE RATIO 10.7 (5.4-32.0); CALCIUM 7.6 MG/DL (8.5-10.1); CHLORIDE 106 MMOL/L (99-107); CREATININE 0.75 MG/DL (0.60-1.10); GLUCOSE 97 MG/DL (70-104); MAGNESIUM 2.3 MG/DL (1.5-2.4); POTASSIUM 4.2 MMOL/L (3.5-5.1); SODIUM 139 MMOL/L (135-145); TOTAL CARBON DIOXIDE 23.9 MMOL/L (24-32); TOTAL PROTEIN 5.5 G/DL (6.4-8.2); eGFR > 90 ML/MIN
[2018-08-16 07:00] VITALS: BP 159/97
[2018-08-16] MEDS: potassium Cl 20 mEq SR tablet PO SCH (07:53)
[2018-08-16] MEDS: atorvastatin 10mg tablet PO SCH (07:53)
[2018-08-16] MEDS: apixaban 2.5mg tablet PO SCH (07:53)
[2018-08-16] MEDS: carVEDilol 3.125mg tablet PO SCH (07:53)
[2018-08-16] MEDS: docusate sod 100mg capsule PO SCH (07:53)
[2018-08-16] MEDS: amiodarone 200mg tablet PO SCH (07:55)
[2018-08-16] MEDS: pantoprazole 40 MG vial IV SCH (07:55)
[2018-08-16] MEDS: magnesium hydroxide 30ml (MOM) UD suspension PO SCH (07:56)
[2018-08-16] MEDS: baclofen 10mg tablet PO SCH (07:56)
[2018-08-16] MEDS: clopidogrel 75mg tablet PO SCH (07:56)
[2018-08-16] MEDS: famotidine 20mg tablet PO SCH (07:56)
[2018-08-16] MEDS: fluticasone nasal spray 16GM bottle NS SCH (07:56)
[2018-08-16 08:19] LABS: ANISOCYTOSIS 3+; PLATELET ESTIMATE NORMAL
[2018-08-16 08:20] LABS: SCHISTOCYTES FEW
[2018-08-16 08:21] LABS: HYPOCHROMASIA 1+
[2018-08-16 11:52] VITALS: BP 162/98
== END 2018-08-16 12:00 | DRG 439 ==
LOC: ER 21:36 → ED HOLD 08-13 00:17 → SUR 3N 08-13 13:07
PROVIDERS: ADMIT Family Medicine; ATTEND Internal Medicine
PROC: BW211ZZ Computerized Tomography (CT Scan) of Abdomen and Pelvis using Low Osmolar Contrast (ICD-10-PCS; principal; 2018-08-12)
DX: K85.90 Acute pancreatitis without necrosis or infection, unspecified (principal); I50.32 Chronic diastolic (congestive) heart failure; I71.4 Abdominal aortic aneurysm, without rupture; D64.9 Anemia, unspecified; E03.9 Hypothyroidism, unspecified; E78.5 Hyperlipidemia, unspecified; E11.65 Type 2 diabetes mellitus with hyperglycemia; Z60.2 Problems related to living alone; I11.0 Hypertensive heart disease with heart failure; I25.10 Atherosclerotic heart disease of native coronary artery without angina pectoris; I48.0 Paroxysmal atrial fibrillation; K59.03 Drug induced constipation; T40.605A Adverse effect of unspecified narcotics, initial encounter; Z88.0 Allergy status to penicillin; Z88.2 Allergy status to sulfonamides; Z79.899 Other long term (current) drug therapy; Z79.01 Long term (current) use of anticoagulants; Y92.89 Other specified places as the place of occurrence of the external cause
CPT/HCPCS: 36415; 74177; 80053; 81003; 82150; 82272; 82948; 83036; 83690; 83735; 83880; 84100; 84439; 84443; 84480; 84484; 85025; 87070; 97110; 97116; 97162; 99285; C9113; G0378; J1170; J1940; J7030; J7042; Q9967

== ENCOUNTER 2019-11-29 09:39 | Emergency (ER) | payer MEDICARE, MEDICAID ==
[~2019-11-29] VITALS: Ht 172.7 cm; Wt 65.9 kg
[~2019-11-29 09:39] MED LIST changes: +CARV3.12 PO; -CARV6.253 PO; -FAMO-128 PO; -FURO20TA4 PO; +PANT-47 PO; -POTA10CA44 PO; -SPIR25TA5 PO
--- NOTE | 2019-11-29 11:04 | NUR ---
pts [facility] worker, Yoly #[phone]
[2019-11-29 11:14] VITALS: BP 171/111
[2019-11-29] MEDS ORDERED: HYDR-4383 PO (12:08)
== END 2019-11-29 12:44 | disposition home or self-care (01) ==
LOC: ER 09:41
DX: M48.56XA Collapsed vertebra, not elsewhere classified, lumbar region, initial encounter for fracture (principal); M25.552 Pain in left hip; I25.10 Atherosclerotic heart disease of native coronary artery without angina pectoris; I50.9 Heart failure, unspecified; I11.0 Hypertensive heart disease with heart failure; E11.9 Type 2 diabetes mellitus without complications; G89.29 Other chronic pain; Z60.2 Problems related to living alone; Z88.0 Allergy status to penicillin; Z88.2 Allergy status to sulfonamides; Z79.01 Long term (current) use of anticoagulants; Z79.899 Other long term (current) drug therapy; X58.XXXA Exposure to other specified factors, initial encounter; Y93.89 Activity, other specified; Y92.89 Other specified places as the place of occurrence of the external cause; Y99.8 Other external cause status
CPT/HCPCS: 72100; 99284

== ENCOUNTER 2020-01-02 09:43 | Emergency (ER) | payer MEDICARE, MEDICAID ==
[~2020-01-02] VITALS: Ht 172.7 cm; Wt 86.4 kg
[~2020-01-02 09:43] MED LIST changes: +HYDR-4383 PO
[2020-01-02] MEDS ORDERED: furosemide 10 MG/1 ML 10ml inj IV ONE (10:00)
[2020-01-02 10:42] LABS: BASOPHILS % (AUTO) 0.7 % (0-1); EOSINOPHILS # (AUTO) 0.3 X10'3 (0-0.9); EOSINOPHILS % (AUTO) 4.9 % (0-6); HEMATOCRIT 44.6 % (42.0-52.0); HEMOGLOBIN 14.9 g/dl (14.0-17.9); LYMPHOCYTES # (AUTO) 1.6 X10'3 (1.1-4.8); LYMPHOCYTES % (AUTO) 25.3 % (21-51); MEAN CORPUSCULAR HEMOGLOBIN 34.1 PG (27.0-31.0); MEAN CORPUSCULAR HGB CONC 33.4 g/dL (33.0-36.5); MEAN PLATELET VOLUME 7.3 FL (7.4-10.4); MONOCYTES # (AUTO) 0.5 X10'3 (0-0.9); MONOCYTES % (AUTO) 8.6 % (2-12); NEUTROPHILS # (AUTO) 3.7 X10'3 (1.8-7.7); NEUTROPHILS % (AUTO) 60.5 % (42-75); PLATELET COUNT 230 X10'3 (140-440); RED BLOOD COUNT 4.37 X10'6 (4.70-6.10); RED CELL DISTRIBUTION WIDTH 14.2 % (11.5-14.5); WHITE BLOOD COUNT 6.2 X10'3 (4.5-11.0)
[2020-01-02 10:54] LABS: ALANINE AMINOTRANSFERASE 21 U/L (12-78); ALBUMIN 3.9 G/DL (3.4-5.0); ALBUMIN/GLOBULIN RATIO 1.2 (1.1-1.5); ALKALINE PHOSPHATASE 116 IU/L (46-116); ANION GAP 7 (8-16); ASPARTATE AMINO TRANSFERASE 25 U/L (10-37); BILIRUBIN,TOTAL 0.8 MG/DL (0.1-1.0); BLOOD UREA NITROGEN 32 MG/DL (7-18); CALCIUM 8.9 MG/DL (8.5-10.1); CHLORIDE 101 MMOL/L (99-107); CREATININE 1.39 MG/DL (0.60-1.10); GLUCOSE 93 MG/DL (70-104); POTASSIUM 4.2 MMOL/L (3.5-5.1); SODIUM 138 MMOL/L (135-145); TOTAL CARBON DIOXIDE 30.5 MMOL/L (24-32); TOTAL PROTEIN 7.2 G/DL (6.4-8.2); eGFR 50 ML/MIN
[2020-01-02] MEDS ORDERED: CefTRIAXone 2gm/D5W 50ml 50 ML IV ONE (12:05)
[2020-01-02] MEDS ORDERED: CEPH250T PO (12:33)
[2020-01-02] MEDS ORDERED: PHEN-786 PO (13:04)
[2020-01-02 13:08] VITALS: BP 164/106
[2020-01-02 14:30] LABS: CLARITY,URINE CLEAR (Clear); COLOR,URINE STRAW (Yellow); GLUCOSE, URINE NEGATIVE (Neg); KETONES,URINE NEGATIVE (Neg); LEUKOCYTE ESTERASE ,URINE NEGATIVE (Neg); NITRITES, URINE NEGATIVE (Neg); OCCULT BLOOD,URINE TRACE-INTACT (Neg); PROTEIN,URINE NEGATIVE (Neg); UROBILINOGEN,URINE 0.2 E.U/dL (0.2-1.0)
[2020-01-02 14:35] LABS: UA COLLECTION TYPE CLN CATCH MIDSTREAM
[2020-01-02 14:37] LABS: BACTERIA,URINE NONE SEEN /HPF (Neg); MUCUS STRANDS NONE SEEN /LPF (Neg); RBC,URINE 0-2 /HPF (0-2); SQUAMOUS EPITHELIAL CELL,UR FEW /LPF (FEW); WBC,URINE 0-4 /HPF (0-4)
== END 2020-01-02 13:30 | disposition home or self-care (01) ==
LOC: ER 09:44
DX: L03.115 Cellulitis of right lower limb (principal); L03.116 Cellulitis of left lower limb; I50.9 Heart failure, unspecified; R60.9 Edema, unspecified; R30.0 Dysuria; I25.10 Atherosclerotic heart disease of native coronary artery without angina pectoris; I11.0 Hypertensive heart disease with heart failure; G89.29 Other chronic pain; E11.9 Type 2 diabetes mellitus without complications; Z60.2 Problems related to living alone; Z88.0 Allergy status to penicillin; Z88.2 Allergy status to sulfonamides; Z79.01 Long term (current) use of anticoagulants; Z79.899 Other long term (current) drug therapy
CPT/HCPCS: 36415; 71045; 80053; 81001; 83605; 83880; 84145; 84484; 85025; 87040; 93005; 93925; 93971; 96365; 96375; 99285; J0696; J1940

== ENCOUNTER 2020-04-12 10:02 | Emergency (ER) | payer MEDICARE, MEDICAID ==
[~2020-04-12] VITALS: Ht 172.7 cm; Wt 85.0 kg
[~2020-04-12 10:02] MED LIST changes: +PHEN-786 PO
[2020-04-12] MEDS ORDERED: CEPH250T PO (11:42)
--- NOTE | 2020-04-12 13:07 | NUR ---
JOHNSON FOR PT JUST CALLED TO AFFIRM SHE WAS EN ROUTE. pRIMARY RN WILLIAM NOTIFIED.
[2020-04-12 13:18] VITALS: BP 146/87
== END 2020-04-12 13:10 | disposition home or self-care (01) ==
LOC: ER 10:03
DX: T14.8XXA Other injury of unspecified body region, initial encounter (principal); L03.115 Cellulitis of right lower limb; I25.10 Atherosclerotic heart disease of native coronary artery without angina pectoris; I50.9 Heart failure, unspecified; I11.0 Hypertensive heart disease with heart failure; E11.9 Type 2 diabetes mellitus without complications; G89.29 Other chronic pain; Z98.890 Other specified postprocedural states; Z60.2 Problems related to living alone; Z88.0 Allergy status to penicillin; Z88.2 Allergy status to sulfonamides; Z79.01 Long term (current) use of anticoagulants; Z79.899 Other long term (current) drug therapy; X58.XXXA Exposure to other specified factors, initial encounter; Y93.89 Activity, other specified; Y92.89 Other specified places as the place of occurrence of the external cause; Y99.8 Other external cause status
CPT/HCPCS: 99284

== ENCOUNTER 2020-08-29 09:19 | Emergency (ER) | payer MEDICARE, MEDICAID ==
[~2020-08-29] VITALS: Ht 172.7 cm; Wt 85.0 kg
--- NOTE | 2020-08-29 12:07 | NUR ---
[facility] CALLED FOR TRANSPORT @ [phone] - TO [address].
--- NOTE | 2020-08-29 12:14 | NUR ---
SUSAN DUMONT ([facility]) FROM NOW, [phone]
[2020-08-29 13:37] VITALS: BP 144/99
== END 2020-08-29 13:25 | disposition home or self-care (01) ==
LOC: ER 09:20
DX: K43.9 Ventral hernia without obstruction or gangrene (principal); H54.7 Unspecified visual loss; I25.10 Atherosclerotic heart disease of native coronary artery without angina pectoris; I11.0 Hypertensive heart disease with heart failure; I50.9 Heart failure, unspecified; E11.9 Type 2 diabetes mellitus without complications; G89.29 Other chronic pain; Z86.2 Personal history of diseases of the blood and blood-forming organs and certain disorders involving the immune mechanism; Z98.890 Other specified postprocedural states; Z60.2 Problems related to living alone; Z88.0 Allergy status to penicillin; Z88.2 Allergy status to sulfonamides; Z79.899 Other long term (current) drug therapy
CPT/HCPCS: 99285

== ENCOUNTER 2020-09-02 11:53 | Emergency (ER) | payer MEDICARE, MEDICAID ==
[~2020-09-02] VITALS: Ht 172.7 cm; Wt 63.6 kg
--- NOTE | 2020-09-02 12:28 | NUR ---
pt has his own walker with him here.
[2020-09-02 12:49] LABS: BASOPHILS % (AUTO) 0.2 % (0-1); EOSINOPHILS # (AUTO) 0.1 X10'3 (0-0.9); EOSINOPHILS % (AUTO) 1.8 % (0-6); HEMATOCRIT 44.8 % (42.0-52.0); LYMPHOCYTES # (AUTO) 1.2 X10'3 (1.1-4.8); LYMPHOCYTES % (AUTO) 18.5 % (21-51); MEAN CORPUSCULAR HGB CONC 33.5 g/dL (33.0-36.5); MEAN CORPUSCULAR VOLUME 101.4 FL (78-98); MEAN PLATELET VOLUME 7.4 FL (7.4-10.4); MONOCYTES # (AUTO) 0.4 X10'3 (0-0.9); MONOCYTES % (AUTO) 6.4 % (2-12); NEUTROPHILS # (AUTO) 4.7 X10'3 (1.8-7.7); NEUTROPHILS % (AUTO) 73.1 % (42-75); PLATELET COUNT 212 X10'3 (140-440); RED BLOOD COUNT 4.42 X10'6 (4.70-6.10); RED CELL DISTRIBUTION WIDTH 13.3 % (11.5-14.5); WHITE BLOOD COUNT 6.5 X10'3 (4.5-11.0)
[2020-09-02 12:57] LABS: ALANINE AMINOTRANSFERASE 23 U/L (12-78); ALBUMIN 3.6 G/DL (3.4-5.0); ALBUMIN/GLOBULIN RATIO 1.2 (1.1-1.5); ALKALINE PHOSPHATASE 85 IU/L (46-116); ANION GAP 6 (8-16); ASPARTATE AMINO TRANSFERASE 20 U/L (10-37); BILIRUBIN,TOTAL 0.6 MG/DL (0.1-1.0); BLOOD UREA NITROGEN 18 MG/DL (7-18); BUN/CREATININE RATIO 15.8 (5.4-32.0); CALCIUM 8.9 MG/DL (8.5-10.1); CHLORIDE 105 MMOL/L (99-107); CREATININE 1.14 MG/DL (0.60-1.10); GLUCOSE 121 MG/DL (70-104); SODIUM 143 MMOL/L (135-145); TOTAL PROTEIN 6.6 G/DL (6.4-8.2); eGFR 62 ML/MIN
[2020-09-02 13:02] LABS: LIPASE 165 U/L (73-393); TROPONIN I < 0.04 NG/ML (0.0-0.05)
[2020-09-02] MEDS ORDERED: BISA-79 PO (13:27)
[2020-09-02] MEDS ORDERED: acetaminophen 325mg tablet PO ONE (13:30)
[2020-09-02] MEDS ORDERED: ondansetron 4mg rapidly disintigrating tab PO ONE (13:30)
[2020-09-02] MEDS ORDERED: bisacodyl 5mg tablet.DR PO ONE (13:30)
--- NOTE | 2020-09-02 13:31 | NUR ---
called Yoly (caregiver) and left a message about picking him up. asked her to call back one way or another.
[2020-09-02 13:57] VITALS: BP 139/80
== END 2020-09-02 14:13 | disposition home or self-care (01) ==
LOC: ER 11:53
DX: K59.00 Constipation, unspecified (principal); K43.9 Ventral hernia without obstruction or gangrene; R10.9 Unspecified abdominal pain; I25.10 Atherosclerotic heart disease of native coronary artery without angina pectoris; I11.0 Hypertensive heart disease with heart failure; I50.9 Heart failure, unspecified; E11.9 Type 2 diabetes mellitus without complications; G89.29 Other chronic pain; Z86.2 Personal history of diseases of the blood and blood-forming organs and certain disorders involving the immune mechanism; Z98.890 Other specified postprocedural states; Z60.2 Problems related to living alone; Z88.0 Allergy status to penicillin; Z88.2 Allergy status to sulfonamides; Z79.01 Long term (current) use of anticoagulants; Z79.899 Other long term (current) drug therapy
CPT/HCPCS: 36415; 74176; 80053; 83605; 83690; 84484; 85025; 99284

== ENCOUNTER → 2020-10-09 | Emergency (ER) | payer MEDICARE, MEDICAID ==
[~2020-10-09] VITALS: Ht 172.7 cm; Wt 79.3 kg
[~2020-10-09] MED LIST changes: +ADV50250 IH; -AMIO200T36 PO; -APIX2.5T PO; -BACL10TA PO; +CALC-891 PO; -CARV3.12 PO; +CARV6.253 PO; -CLOP75TA15 PO; -CYAN100097 IM; +DOCU-22 PO; -DOCU-28 PO; +FERR-39 PO; -FERR140T2; +FLO0.4C PO; -FLUT16SP10 INH; +FURO20TA4 PO; -HYDR-3972 PO; -HYDR-4383 PO; +LISI-604 PO; +OMEP-50 PO; +OSC500T PO; -PANT-47 PO; -PHEN-786 PO; +POLY119P2 PO; -POLY255P19 PO; +POTA10TA10 PO; +RIVA15TA PO
[2020-10-09 09:58] LABS: BASOPHILS % (AUTO) 0.5 % (0-1); EOSINOPHILS # (AUTO) 0.3 X10'3 (0-0.9); EOSINOPHILS % (AUTO) 3.1 % (0-6); HEMOGLOBIN 14.2 g/dl (14.0-17.9); LYMPHOCYTES # (AUTO) 1.1 X10'3 (1.1-4.8); LYMPHOCYTES % (AUTO) 12.3 % (21-51); MEAN CORPUSCULAR HEMOGLOBIN 34.5 PG (27.0-31.0); MEAN CORPUSCULAR HGB CONC 33.8 g/dL (33.0-36.5); MEAN PLATELET VOLUME 7.7 FL (7.4-10.4); MONOCYTES # (AUTO) 0.5 X10'3 (0-0.9); MONOCYTES % (AUTO) 6.3 % (2-12); NEUTROPHILS # (AUTO) 6.7 X10'3 (1.8-7.7); NEUTROPHILS % (AUTO) 77.8 % (42-75); PLATELET COUNT 227 X10'3 (140-440); RED BLOOD COUNT 4.12 X10'6 (4.70-6.10); RED CELL DISTRIBUTION WIDTH 13.2 % (11.5-14.5); WHITE BLOOD COUNT 8.7 X10'3 (4.5-11.0)
[2020-10-09 10:14] LABS: ALANINE AMINOTRANSFERASE 38 U/L (12-78); ALBUMIN 3.5 G/DL (3.4-5.0); ALBUMIN/GLOBULIN RATIO 1.1 (1.1-1.5); ALKALINE PHOSPHATASE 105 IU/L (46-116); ANION GAP 7 (8-16); ASPARTATE AMINO TRANSFERASE 26 U/L (10-37); BILIRUBIN,TOTAL 0.8 MG/DL (0.1-1.0); BLOOD UREA NITROGEN 15 MG/DL (7-18); BUN/CREATININE RATIO 16.7 (5.4-32.0); CALCIUM 9.1 MG/DL (8.5-10.1); CHLORIDE 102 MMOL/L (99-107); GLUCOSE 97 MG/DL (70-104); POTASSIUM 3.9 MMOL/L (3.5-5.1); SODIUM 139 MMOL/L (135-145); TOTAL PROTEIN 6.8 G/DL (6.4-8.2); eGFR 82 ML/MIN
[2020-10-09 11:17] VITALS: BP 131/76
== END | disposition home or self-care (01) ==
LOC: ER 08:49
DX: T81.9XXA Unspecified complication of procedure, initial encounter (principal); I25.10 Atherosclerotic heart disease of native coronary artery without angina pectoris; I11.0 Hypertensive heart disease with heart failure; I50.9 Heart failure, unspecified; E11.9 Type 2 diabetes mellitus without complications; G89.29 Other chronic pain; Z86.2 Personal history of diseases of the blood and blood-forming organs and certain disorders involving the immune mechanism; Z98.890 Other specified postprocedural states; Z60.2 Problems related to living alone; Z88.2 Allergy status to sulfonamides; Z88.0 Allergy status to penicillin; Z79.899 Other long term (current) drug therapy; X58.XXXA Exposure to other specified factors, initial encounter; Y93.89 Activity, other specified; Y92.89 Other specified places as the place of occurrence of the external cause; Y99.8 Other external cause status
CPT/HCPCS: 36415; 74018; 74176; 80053; 85025; 99285

== ENCOUNTER 2020-12-25 15:18 | Emergency (ER) | payer MEDICARE, MEDICAID ==
[~2020-12-25] VITALS: Ht 172.7 cm; Wt 81.5 kg
[~2020-12-25 15:18] MED LIST changes: -LISI-604 PO; +LISI-790 PO
[2020-12-25 15:45] VITALS: BP 265/185
[2020-12-26] MEDS ORDERED: LOPE2TAB25 PO (16:39)
== END 2020-12-25 18:49 | disposition left against medical advice (07) ==
LOC: ER 15:19
DX: R19.7 Diarrhea, unspecified (principal); Z53.21 Procedure and treatment not carried out due to patient leaving prior to being seen by health care provider

== ENCOUNTER 2020-12-26 15:08 | Emergency (ER) | payer MEDICARE, MEDICAID ==
[~2020-12-26] VITALS: Ht 172.7 cm; Wt 64.1 kg
[2020-12-26] MEDS ORDERED: LOPE2TAB25 PO (16:39)
[2020-12-26] MEDS ORDERED: loperamide 2mg capsule PO ONE (16:40)
[2020-12-26 16:42] VITALS: BP 117/80
== END 2020-12-26 17:16 | disposition home or self-care (01) ==
LOC: ER 15:09
DX: R19.7 Diarrhea, unspecified (principal); K59.00 Constipation, unspecified; I25.10 Atherosclerotic heart disease of native coronary artery without angina pectoris; I11.0 Hypertensive heart disease with heart failure; I50.9 Heart failure, unspecified; E11.9 Type 2 diabetes mellitus without complications; G89.29 Other chronic pain; Z86.2 Personal history of diseases of the blood and blood-forming organs and certain disorders involving the immune mechanism; Z98.890 Other specified postprocedural states; Z60.2 Problems related to living alone; Z88.0 Allergy status to penicillin; Z88.2 Allergy status to sulfonamides; Z79.899 Other long term (current) drug therapy
CPT/HCPCS: 99282

== ENCOUNTER 2020-12-30 05:21 | Emergency (ER) | payer MEDICARE, MEDICAID ==
[~2020-12-30] VITALS: Ht 172.7 cm; Wt 70.0 kg
[~2020-12-30 05:21] MED LIST changes: +LOPE2TAB25 PO
[2020-12-30 05:22] VITALS: BP 157/95
[2020-12-30 06:08] LABS: BASOPHILS % (AUTO) 0.5 % (0-1); EOSINOPHILS # (AUTO) 0.3 X10'3 (0-0.9); EOSINOPHILS % (AUTO) 4.1 % (0-6); HEMATOCRIT 44.5 % (42.0-52.0); LYMPHOCYTES # (AUTO) 1.4 X10'3 (1.1-4.8); LYMPHOCYTES % (AUTO) 21.3 % (21-51); MEAN CORPUSCULAR HEMOGLOBIN 34.5 PG (27.0-31.0); MEAN CORPUSCULAR HGB CONC 33.8 g/dL (33.0-36.5); MEAN CORPUSCULAR VOLUME 102.3 FL (78-98); MEAN PLATELET VOLUME 7.4 FL (7.4-10.4); MONOCYTES # (AUTO) 0.5 X10'3 (0-0.9); NEUTROPHILS # (AUTO) 4.3 X10'3 (1.8-7.7); NEUTROPHILS % (AUTO) 66.1 % (42-75); PLATELET COUNT 211 X10'3 (140-440); RED BLOOD COUNT 4.35 X10'6 (4.70-6.10); RED CELL DISTRIBUTION WIDTH 13.8 % (11.5-14.5); WHITE BLOOD COUNT 6.5 X10'3 (4.5-11.0)
[2020-12-30 06:09] LABS: CLARITY,URINE CLEAR (Clear); COLOR,URINE YELLOW (Yellow); GLUCOSE, URINE NEGATIVE (Neg); KETONES,URINE NEGATIVE (Neg); LEUKOCYTE ESTERASE ,URINE NEGATIVE (Neg); NITRITES, URINE NEGATIVE (Neg); OCCULT BLOOD,URINE NEGATIVE (Neg); PROTEIN,URINE NEGATIVE (Neg); UROBILINOGEN,URINE 0.2 E.U/dL (0.2-1.0)
[2020-12-30 06:12] LABS: UA COLLECTION TYPE STRAIGHT CATH
[2020-12-30 06:20] LABS: ALANINE AMINOTRANSFERASE 18 U/L (12-78); ALBUMIN 3.7 G/DL (3.4-5.0); ALBUMIN/GLOBULIN RATIO 1.2 (1.1-1.5); ALKALINE PHOSPHATASE 92 IU/L (46-116); ANION GAP 6 (8-16); ASPARTATE AMINO TRANSFERASE 17 U/L (10-37); BILIRUBIN,TOTAL 0.6 MG/DL (0.1-1.0); BLOOD UREA NITROGEN 15 MG/DL (7-18); BUN/CREATININE RATIO 15.8 (5.4-32.0); CALCIUM 9.4 MG/DL (8.5-10.1); CHLORIDE 103 MMOL/L (99-107); CREATININE 0.95 MG/DL (0.60-1.10); GLUCOSE 100 MG/DL (70-104); POTASSIUM 4.1 MMOL/L (3.5-5.1); SODIUM 139 MMOL/L (135-145); TOTAL PROTEIN 6.8 G/DL (6.4-8.2); eGFR 77 ML/MIN
--- NOTE | 2020-12-30 06:24 | NUR ---
Dr Villanueva at bedside, states she called caregiver and left a message, patient repositioned for comfort and updated.
--- NOTE | 2020-12-30 06:55 | NUR ---
Call to caregiver Yanique at this time, no answer, will call back, patient updated.
== END 2020-12-30 07:58 | disposition home or self-care (01) ==
LOC: ER 05:21
DX: R33.9 Retention of urine, unspecified (principal); K59.00 Constipation, unspecified; G30.9 Alzheimer's disease, unspecified; F02.80 Dementia in other diseases classified elsewhere, unspecified severity, without behavioral disturbance, psychotic disturbance, mood disturbance, and anxiety; I25.10 Atherosclerotic heart disease of native coronary artery without angina pectoris; I11.0 Hypertensive heart disease with heart failure; E11.9 Type 2 diabetes mellitus without complications; G89.29 Other chronic pain; Z86.2 Personal history of diseases of the blood and blood-forming organs and certain disorders involving the immune mechanism; Z88.0 Allergy status to penicillin; Z88.2 Allergy status to sulfonamides; Z79.899 Other long term (current) drug therapy
CPT/HCPCS: 36415; 76857; 80053; 81003; 85025; 99284

== ENCOUNTER 2021-01-01 14:37 | Emergency (ER) | payer MEDICARE, MEDICAID ==
[~2021-01-01] VITALS: Ht 172.7 cm; Wt 70.0 kg
[2021-01-01 16:40] LABS: CLARITY,URINE SLIGHTLY CLOUDY (Clear); COLOR,URINE YELLOW (Yellow); GLUCOSE, URINE NEGATIVE (Neg); KETONES,URINE NEGATIVE (Neg); LEUKOCYTE ESTERASE ,URINE MODERATE (Neg); NITRITES, URINE POSITIVE (Neg); OCCULT BLOOD,URINE TRACE-INTACT (Neg); PROTEIN,URINE NEGATIVE (Neg); UROBILINOGEN,URINE 0.2 E.U/dL (0.2-1.0)
[2021-01-01 16:41] LABS: UA COLLECTION TYPE CLN CATCH MIDSTREAM
[2021-01-01 16:49] LABS: BACTERIA,URINE 2+ /HPF (Neg); SQUAMOUS EPITHELIAL CELL,UR FEW /LPF (FEW); WBC,URINE 20-30 /HPF (0-4)
[2021-01-01 16:50] LABS: RBC,URINE 0-2 /HPF (0-2)
[2021-01-01 17:02] LABS: BASOPHILS # (AUTO) 0.1 X10'3 (0-0.2); BASOPHILS % (AUTO) 0.4 % (0-1); EOSINOPHILS # (AUTO) 0.1 X10'3 (0-0.9); EOSINOPHILS % (AUTO) 0.7 % (0-6); HEMATOCRIT 46.8 % (42.0-52.0); HEMOGLOBIN 15.7 g/dl (14.0-17.9); LYMPHOCYTES # (AUTO) 0.5 X10'3 (1.1-4.8); LYMPHOCYTES % (AUTO) 4.6 % (21-51); MEAN CORPUSCULAR HEMOGLOBIN 34.3 PG (27.0-31.0); MEAN CORPUSCULAR HGB CONC 33.5 g/dL (33.0-36.5); MEAN CORPUSCULAR VOLUME 102.1 FL (78-98); MEAN PLATELET VOLUME 7.6 FL (7.4-10.4); MONOCYTES # (AUTO) 0.5 X10'3 (0-0.9); MONOCYTES % (AUTO) 4.2 % (2-12); NEUTROPHILS # (AUTO) 10.8 X10'3 (1.8-7.7); NEUTROPHILS % (AUTO) 90.1 % (42-75); PLATELET COUNT 217 X10'3 (140-440); RED BLOOD COUNT 4.58 X10'6 (4.70-6.10); RED CELL DISTRIBUTION WIDTH 13.7 % (11.5-14.5); WHITE BLOOD COUNT 11.9 X10'3 (4.5-11.0)
[2021-01-01 17:25] LABS: ALANINE AMINOTRANSFERASE 15 U/L (12-78); ALBUMIN/GLOBULIN RATIO 1.1 (1.1-1.5); ALKALINE PHOSPHATASE 111 IU/L (46-116); ANION GAP 8 (8-16); ASPARTATE AMINO TRANSFERASE 20 U/L (10-37); BLOOD UREA NITROGEN 15 MG/DL (7-18); CALCIUM 9.1 MG/DL (8.5-10.1); CHLORIDE 101 MMOL/L (99-107); GLUCOSE 95 MG/DL (70-104); POTASSIUM 4.1 MMOL/L (3.5-5.1); SODIUM 135 MMOL/L (135-145); TOTAL CARBON DIOXIDE 26.4 MMOL/L (24-32); TOTAL PROTEIN 7.6 G/DL (6.4-8.2); eGFR 73 ML/MIN
[2021-01-01] MEDS ORDERED: POLY17PO10 PO (18:08)
[2021-01-01] MEDS ORDERED: NITR100C6 PO (18:08)
--- NOTE | 2021-01-01 19:50 | NUR ---
PT HAD BM WHILE IN ER. CAREGIVER AT BEDSIDE, INSTRUCTIONS GIVEN TO PT AND CAREGIVER BY MYSELF AND RUCHI WORLEY
[2021-01-01 20:21] VITALS: BP 165/65
== END 2021-01-01 20:24 | disposition home or self-care (01) ==
LOC: ER 14:38
DX: N39.0 Urinary tract infection, site not specified (principal); K59.00 Constipation, unspecified; R19.7 Diarrhea, unspecified; R33.9 Retention of urine, unspecified; I25.10 Atherosclerotic heart disease of native coronary artery without angina pectoris; I11.0 Hypertensive heart disease with heart failure; I50.9 Heart failure, unspecified; E11.9 Type 2 diabetes mellitus without complications; G89.29 Other chronic pain; Z86.2 Personal history of diseases of the blood and blood-forming organs and certain disorders involving the immune mechanism; Z98.890 Other specified postprocedural states; Z60.2 Problems related to living alone; Z88.0 Allergy status to penicillin; Z88.2 Allergy status to sulfonamides; Z79.899 Other long term (current) drug therapy
CPT/HCPCS: 36415; 74018; 80053; 81001; 85025; 87077; 87088; 87186; 99284

== ENCOUNTER 2021-01-05 08:05 | Emergency (ER) | payer MEDICARE, MEDICAID ==
[~2021-01-05] VITALS: Ht 172.7 cm; Wt 160.0 kg
[~2021-01-05 08:05] MED LIST changes: +NITR100C6 PO
[2021-01-05 08:08] VITALS: BP 151/100
--- NOTE | 2021-01-05 08:31 | NUR ---
Ed Ashish, ([phone]), pt's taoism friend called to share pt had called him earlier this AM distraught. Ed recommended pt call 911, which pt did. Ed further shared pt has an [facility] [place] worker, Isabella, 5 days a week @ 4hrs to assist with living, but that she is not there on the weekends. He asked about getting that extended. I explained further services would have to come from pt's PCP unless the pt is to be admitted where a social science professor consult would likely be included to begin exploring the current situation. Ed stated he understood and wanted to make sure his concern for the pt was communicated. I assured Ed his concerns would be conveyed to MINAL Rowe.
--- NOTE | 2021-01-05 08:40 | NUR ---
Discussed pt's friends concerns w/ EDMD Jae along with noted assessment of pt's slow ability to transfer himself from ems gurney to ed gurney. Pt was able to make the transfer unassisted, however the effort required may be a contributing factor for pt @ home in regard to getting to toilet in a timely manner. Per EDMD Jae, PT assessment to be sought as pt is alone on weekends where limited mobility is of greatest concern.
--- NOTE | 2021-01-05 08:58 | NUR ---
Request to [facility] faxed by Jeremy, requesting Physical Therapy and Bridal Consultant assessment/services made by MINAL Rowe.
== END 2021-01-05 09:44 | disposition home or self-care (01) ==
LOC: ER 08:05
DX: Z00.00 Encounter for general adult medical examination without abnormal findings (principal); R19.7 Diarrhea, unspecified; K59.00 Constipation, unspecified; I25.10 Atherosclerotic heart disease of native coronary artery without angina pectoris; I11.0 Hypertensive heart disease with heart failure; I50.9 Heart failure, unspecified; E11.9 Type 2 diabetes mellitus without complications; G89.29 Other chronic pain; Z86.2 Personal history of diseases of the blood and blood-forming organs and certain disorders involving the immune mechanism; Z98.890 Other specified postprocedural states; Z60.2 Problems related to living alone; Z88.0 Allergy status to penicillin; Z88.2 Allergy status to sulfonamides; Z79.899 Other long term (current) drug therapy
CPT/HCPCS: 99283

== ENCOUNTER 2021-01-07 15:34 | Emergency (ER) | payer MEDICARE, MEDICAID ==
[~2021-01-07] VITALS: Ht 172.7 cm; Wt 90.0 kg
[2021-01-07 17:19] LABS: BASOPHILS # (AUTO) 0.1 X10'3 (0-0.2); BASOPHILS % (AUTO) 0.7 % (0-1); EOSINOPHILS # (AUTO) 0.2 X10'3 (0-0.9); EOSINOPHILS % (AUTO) 2.5 % (0-6); HEMATOCRIT 40.6 % (42.0-52.0); HEMOGLOBIN 13.7 g/dl (14.0-17.9); LYMPHOCYTES # (AUTO) 1.4 X10'3 (1.1-4.8); LYMPHOCYTES % (AUTO) 17.8 % (21-51); MEAN CORPUSCULAR HEMOGLOBIN 34.3 PG (27.0-31.0); MEAN CORPUSCULAR HGB CONC 33.7 g/dL (33.0-36.5); MEAN CORPUSCULAR VOLUME 101.6 FL (78-98); MEAN PLATELET VOLUME 7.6 FL (7.4-10.4); MONOCYTES # (AUTO) 0.9 X10'3 (0-0.9); MONOCYTES % (AUTO) 11.4 % (2-12); NEUTROPHILS # (AUTO) 5.2 X10'3 (1.8-7.7); NEUTROPHILS % (AUTO) 67.6 % (42-75); PLATELET COUNT 247 X10'3 (140-440); RED BLOOD COUNT 3.99 X10'6 (4.70-6.10); RED CELL DISTRIBUTION WIDTH 13.7 % (11.5-14.5); WHITE BLOOD COUNT 7.7 X10'3 (4.5-11.0)
[2021-01-07 17:30] LABS: ALANINE AMINOTRANSFERASE 14 U/L (12-78); ALBUMIN 3.1 G/DL (3.4-5.0); ALBUMIN/GLOBULIN RATIO 0.9 (1.1-1.5); ALKALINE PHOSPHATASE 88 IU/L (46-116); ANION GAP 7 (8-16); ASPARTATE AMINO TRANSFERASE 24 U/L (10-37); BILIRUBIN,TOTAL 0.4 MG/DL (0.1-1.0); BLOOD UREA NITROGEN 13 MG/DL (7-18); BUN/CREATININE RATIO 15.1 (5.4-32.0); CALCIUM 8.9 MG/DL (8.5-10.1); CHLORIDE 105 MMOL/L (99-107); CREATININE 0.86 MG/DL (0.60-1.10); GLUCOSE 83 MG/DL (70-104); POTASSIUM 4.4 MMOL/L (3.5-5.1); SODIUM 142 MMOL/L (135-145); TOTAL CARBON DIOXIDE 29.7 MMOL/L (24-32); TOTAL PROTEIN 6.6 G/DL (6.4-8.2); eGFR 86 ML/MIN
[2021-01-07 17:40] LABS: CLARITY,URINE SLIGHTLY CLOUDY (Clear); COLOR,URINE YELLOW (Yellow); GLUCOSE, URINE NEGATIVE (Neg); KETONES,URINE NEGATIVE (Neg); LEUKOCYTE ESTERASE ,URINE MODERATE (Neg); NITRITES, URINE NEGATIVE (Neg); OCCULT BLOOD,URINE TRACE-INTACT (Neg); PROTEIN,URINE NEGATIVE (Neg)
[2021-01-07 17:42] LABS: UA COLLECTION TYPE CLN CATCH MIDSTREAM
[2021-01-07 17:46] LABS: BACTERIA,URINE 4+ /HPF (Neg); RBC,URINE 0-2 /HPF (0-2)
[2021-01-07 17:47] LABS: MUCUS STRANDS MODERATE /LPF (Neg); SQUAMOUS EPITHELIAL CELL,UR FEW /LPF (FEW)
[2021-01-07] MEDS ORDERED: SULF1TAB49 PO (19:25)
[2021-01-07] MEDS ORDERED: sulfamethoxazole/trimethoprim DS (800/160mg) tablet PO ONE (19:25)
[2021-01-07] MEDS ORDERED: CIPR-202 PO (19:27)
[2021-01-07] MEDS ORDERED: ciprofloxacin 250mg tablet PO ONE (19:30)
--- NOTE | 2021-01-07 19:33 | NUR ---
Patient up to the bathroom using his walker.
[2021-01-07 19:52] VITALS: BP 165/97
--- NOTE | 2021-01-09 12:00 | NUR ---
Patients caregiver, Madhavi Glaser, called regarding not receiving prescription for bactrim. I stated to her that I would call in prescription for patient. She then called back right away and spoke to me regarding a referral that was made by Dr. Rowe on a previous visit on the 01/05/21 to [facility] health care for possible PT. I stated to her that I couldn't do anything about the referral, but I would call our case management and see if there was anything they could do. I then paged case management who called right back and I spoke to Malika regarding patient and gaver her Madhavi's number [phone]. Case management stated that they would contact Madhavi.
--- NOTE | 2021-01-09 12:08 | NUR ---
BACTRIUM DS 1 PO BID #[id number]. CALLED TO [facility] ON [address] ORDERED IN PTS DC [place]. PER FAMILY THE RX WAS NOT IN THE PACKET
== END 2021-01-07 19:56 | disposition home or self-care (01) ==
LOC: ER 15:35
DX: N39.0 Urinary tract infection, site not specified (principal); K59.09 Other constipation; N48.89 Other specified disorders of penis; I25.10 Atherosclerotic heart disease of native coronary artery without angina pectoris; I11.0 Hypertensive heart disease with heart failure; I50.9 Heart failure, unspecified; E11.9 Type 2 diabetes mellitus without complications; G89.29 Other chronic pain; Z86.2 Personal history of diseases of the blood and blood-forming organs and certain disorders involving the immune mechanism; Z88.0 Allergy status to penicillin; Z88.2 Allergy status to sulfonamides; Z79.899 Other long term (current) drug therapy; Z91.81 History of falling
CPT/HCPCS: 36415; 80053; 81001; 85025; 87077; 87088; 87186; 99284

== ENCOUNTER 2021-01-10 16:31 | Emergency (ER) | payer MEDICARE, MEDICAID ==
[~2021-01-10] VITALS: Ht 170.2 cm; Wt 90.0 kg
[~2021-01-10 16:31] MED LIST changes: +CIPR-202 PO; +SULF1TAB49 PO
[2021-01-10 17:23] VITALS: BP 140/86
== END 2021-01-10 18:05 | disposition home or self-care (01) ==
LOC: ER 18:04
DX: N39.0 Urinary tract infection, site not specified (principal); K59.00 Constipation, unspecified; R10.30 Lower abdominal pain, unspecified; I25.10 Atherosclerotic heart disease of native coronary artery without angina pectoris; I11.0 Hypertensive heart disease with heart failure; I50.9 Heart failure, unspecified; E11.9 Type 2 diabetes mellitus without complications; G89.29 Other chronic pain; Z86.2 Personal history of diseases of the blood and blood-forming organs and certain disorders involving the immune mechanism; Z98.890 Other specified postprocedural states; Z88.0 Allergy status to penicillin; Z88.2 Allergy status to sulfonamides; Z79.2 Long term (current) use of antibiotics; Z79.899 Other long term (current) drug therapy
CPT/HCPCS: 99284

== ENCOUNTER 2021-01-11 11:53 | Emergency (ER) | payer MEDICARE, MEDICAID ==
[~2021-01-11] VITALS: Ht 172.7 cm; Wt 72.7 kg
--- NOTE | 2021-01-11 12:36 | NUR ---
CAR SALES ASSOCIATE AT BEDSIDE.
[2021-01-11 12:56] LABS: BASOPHILS % (AUTO) 0.4 % (0-1); EOSINOPHILS # (AUTO) 0.2 X10'3 (0-0.9); EOSINOPHILS % (AUTO) 2.3 % (0-6); HEMATOCRIT 41.2 % (42.0-52.0); LYMPHOCYTES # (AUTO) 1.2 X10'3 (1.1-4.8); LYMPHOCYTES % (AUTO) 17.9 % (21-51); MEAN CORPUSCULAR HEMOGLOBIN 34.2 PG (27.0-31.0); MEAN CORPUSCULAR HGB CONC 33.8 g/dL (33.0-36.5); MEAN PLATELET VOLUME 7.2 FL (7.4-10.4); MONOCYTES # (AUTO) 0.5 X10'3 (0-0.9); NEUTROPHILS # (AUTO) 4.8 X10'3 (1.8-7.7); NEUTROPHILS % (AUTO) 72.4 % (42-75); PLATELET COUNT 281 X10'3 (140-440); RED BLOOD COUNT 4.08 X10'6 (4.70-6.10); RED CELL DISTRIBUTION WIDTH 13.5 % (11.5-14.5); WHITE BLOOD COUNT 6.6 X10'3 (4.5-11.0)
[2021-01-11 13:02] LABS: ALANINE AMINOTRANSFERASE 14 U/L (12-78); ALBUMIN 3.3 G/DL (3.4-5.0); ALBUMIN/GLOBULIN RATIO 0.9 (1.1-1.5); ALKALINE PHOSPHATASE 96 IU/L (46-116); ANION GAP 10 (8-16); ASPARTATE AMINO TRANSFERASE 16 U/L (10-37); BILIRUBIN,TOTAL 0.3 MG/DL (0.1-1.0); BLOOD UREA NITROGEN 9 MG/DL (7-18); BUN/CREATININE RATIO 8.6 (5.4-32.0); CALCIUM 9.2 MG/DL (8.5-10.1); CHLORIDE 104 MMOL/L (99-107); CREATININE 1.05 MG/DL (0.60-1.10); GLUCOSE 119 MG/DL (70-104); SODIUM 143 MMOL/L (135-145); TOTAL PROTEIN 6.8 G/DL (6.4-8.2); eGFR 69 ML/MIN
[2021-01-11 13:41] LABS: CLARITY,URINE CLEAR (Clear); COLOR,URINE STRAW (Yellow); GLUCOSE, URINE NEGATIVE (Neg); KETONES,URINE NEGATIVE (Neg); LEUKOCYTE ESTERASE ,URINE NEGATIVE (Neg); NITRITES, URINE NEGATIVE (Neg); OCCULT BLOOD,URINE NEGATIVE (Neg); PH,URINE 6.5 (4.8-8.0); PROTEIN,URINE NEGATIVE (Neg); UROBILINOGEN,URINE 0.2 E.U/dL (0.2-1.0)
[2021-01-11 13:51] LABS: UA COLLECTION TYPE VOIDED
--- NOTE | 2021-01-11 15:29 | NUR ---
SW SPEAKING WITH RUCHI BEJARANO AFTER SPEAKING WITH PATIENT REGARDING DC PLAN OF CARE.
[2021-01-11 15:58] VITALS: BP 162/120
--- NOTE | 2021-01-11 16:01 | NUR ---
CALL TO CAREGIVER ESSENCE AT THIS TIME. PER ESSENCE PATIENT GETS PICKED UP BY OTHER TRANSPORATION.
== END 2021-01-11 16:53 | disposition home or self-care (01) ==
LOC: ER 11:54
DX: Z02.89 Encounter for other administrative examinations (principal); R42 Dizziness and giddiness; K59.00 Constipation, unspecified; R19.7 Diarrhea, unspecified; I25.10 Atherosclerotic heart disease of native coronary artery without angina pectoris; I11.0 Hypertensive heart disease with heart failure; I50.9 Heart failure, unspecified; E11.9 Type 2 diabetes mellitus without complications; G89.29 Other chronic pain; Z86.2 Personal history of diseases of the blood and blood-forming organs and certain disorders involving the immune mechanism; Z98.890 Other specified postprocedural states; Z60.2 Problems related to living alone; Z88.0 Allergy status to penicillin; Z88.2 Allergy status to sulfonamides; Z79.899 Other long term (current) drug therapy; Z79.2 Long term (current) use of antibiotics
CPT/HCPCS: 36415; 71045; 80053; 81003; 83880; 84484; 85025; 93005; 99285

== ENCOUNTER 2021-02-06 11:43 | Emergency (ER) | payer MEDICARE, MEDICAID ==
[~2021-02-06] VITALS: Ht 172.7 cm; Wt 63.0 kg
[2021-02-06] MEDS ORDERED: normal saline 1000ML IV soln IVB ONE (12:00)
--- NOTE | 2021-02-06 12:14 | NUR ---
PT TO CT
[2021-02-06 12:19] LABS: BASOPHILS % (AUTO) 0.7 % (0-1); EOSINOPHILS # (AUTO) 0.2 X10'3 (0-0.9); EOSINOPHILS % (AUTO) 2.7 % (0-6); HEMATOCRIT 40.9 % (42.0-52.0); HEMOGLOBIN 13.8 g/dl (14.0-17.9); LYMPHOCYTES # (AUTO) 1.3 X10'3 (1.1-4.8); LYMPHOCYTES % (AUTO) 23.1 % (21-51); MEAN CORPUSCULAR HEMOGLOBIN 33.9 PG (27.0-31.0); MEAN CORPUSCULAR HGB CONC 33.7 g/dL (33.0-36.5); MEAN CORPUSCULAR VOLUME 100.6 FL (78-98); MEAN PLATELET VOLUME 7.2 FL (7.4-10.4); MONOCYTES # (AUTO) 0.4 X10'3 (0-0.9); MONOCYTES % (AUTO) 7.6 % (2-12); NEUTROPHILS # (AUTO) 3.6 X10'3 (1.8-7.7); NEUTROPHILS % (AUTO) 65.9 % (42-75); PLATELET COUNT 215 X10'3 (140-440); RED BLOOD COUNT 4.06 X10'6 (4.70-6.10); RED CELL DISTRIBUTION WIDTH 13.8 % (11.5-14.5); WHITE BLOOD COUNT 5.5 X10'3 (4.5-11.0)
[2021-02-06 12:38] LABS: ALBUMIN 3.5 G/DL (3.4-5.0); ALBUMIN/GLOBULIN RATIO 1.2 (1.1-1.5); ANION GAP 10 (8-16); ASPARTATE AMINO TRANSFERASE 16 U/L (10-37); BILIRUBIN,TOTAL 0.6 MG/DL (0.1-1.0); BLOOD UREA NITROGEN 13 MG/DL (7-18); BUN/CREATININE RATIO 15.7 (5.4-32.0); CALCIUM 8.7 MG/DL (8.5-10.1); CHLORIDE 106 MMOL/L (99-107); CREATININE 0.83 MG/DL (0.60-1.10); GLUCOSE 95 MG/DL (70-104); POTASSIUM 3.9 MMOL/L (3.5-5.1); SODIUM 141 MMOL/L (135-145); TOTAL CARBON DIOXIDE 24.7 MMOL/L (24-32); TOTAL PROTEIN 6.4 G/DL (6.4-8.2); eGFR 90 ML/MIN
[2021-02-06 12:39] LABS: ALANINE AMINOTRANSFERASE 12 U/L (12-78); ALKALINE PHOSPHATASE 88 IU/L (46-116)
--- NOTE | 2021-02-06 12:45 | NUR ---
pt is resting quietly on gurney, resp even and unlabored, skin p/w/d, 1st liter NS infusing w/o, urinal at bedside
--- NOTE | 2021-02-06 13:47 | NUR ---
NAIL EXPERT PAGED
--- NOTE | 2021-02-06 14:13 | NUR ---
GAVE PT JELLO AND APPLESAUCE, NOEMY WELL, NO N/V, R. INDER HOPPER AWARE PT DOES NOT NEED TO URINATE YET, LITER BOLUS HAS FINISHED, WAITING FOR PRODUCTION HELPER CONSULT
--- NOTE | 2021-02-06 14:46 | NUR ---
rehabilitation services director aware of pt in ER, waiting for evaluation
--- NOTE | 2021-02-06 15:25 | NUR ---
BAG MACHINE OPERATOR HAS EVALUATED PT, FAMILY IS GOING TO FIND ANOTHER CAREGIVER, PT IS OK TO BE DC'D NOW PER Jc HOPPER
--- NOTE | 2021-02-06 16:05 | NUR ---
PT NOT IN ROOM AT THIS TIME
--- NOTE | 2021-02-06 16:17 | NUR ---
NOTE CONTINUING....PT ABLE TO TRANSFER SELF WITHOUT ASSIST BUT DID NEED DIRECTION ON CLEANING HIMSELF PROPERLY AFTER HAVING A BOWEL MOVEMENT.
--- NOTE | 2021-02-06 16:17 | NUR ---
TECH ASSISTED PT TO RESTROOM WITH WALKER, PT VINCENT
[2021-02-06 16:24] LABS: CLARITY,URINE CLEAR (Clear); COLOR,URINE STRAW (Yellow); GLUCOSE, URINE NEGATIVE (Neg); KETONES,URINE NEGATIVE (Neg); LEUKOCYTE ESTERASE ,URINE NEGATIVE (Neg); NITRITES, URINE NEGATIVE (Neg); OCCULT BLOOD,URINE TRACE-INTACT (Neg); PROTEIN,URINE NEGATIVE (Neg); UROBILINOGEN,URINE 0.2 E.U/dL (0.2-1.0)
[2021-02-06 16:40] LABS: UA COLLECTION TYPE CLN CATCH MIDSTREAM
[2021-02-06 16:41] LABS: BACTERIA,URINE FEW /HPF (Neg); HYALINE CASTS 0-3 /LPF (NEGATIVE); MUCUS STRANDS FEW /LPF (Neg); RBC,URINE 0-2 /HPF (0-2); SQUAMOUS EPITHELIAL CELL,UR FEW /LPF (FEW); WBC,URINE 0-4 /HPF (0-4)
--- NOTE | 2021-02-06 16:50 | NUR ---
Jc HOPPER SAID FAMILY IS GOING TO CHECK ON PT TONIGHT, MULTINEEDLE SHIRRER GOING TO CONTACT APS, PT GOING HOME VIA TAXI
--- NOTE | 2021-02-06 16:53 | NUR ---
ETA FOR TAXI IS 45 MINUTES
--- NOTE | 2021-02-06 17:01 | NUR ---
PT AMB WITH SUDHEER TO BLANE, PT IS AWARE TAXI WILL BE IN HERE IN APPROX 45MINUTES
[2021-02-06 17:02] VITALS: BP 162/105
== END 2021-02-06 17:31 | disposition home or self-care (01) ==
LOC: ER 11:44
DX: T67.9XXA Effect of heat and light, unspecified, initial encounter (principal); I48.91 Unspecified atrial fibrillation; R42 Dizziness and giddiness; R53.1 Weakness; I25.10 Atherosclerotic heart disease of native coronary artery without angina pectoris; I11.0 Hypertensive heart disease with heart failure; I50.9 Heart failure, unspecified; E11.9 Type 2 diabetes mellitus without complications; G89.29 Other chronic pain; Z86.2 Personal history of diseases of the blood and blood-forming organs and certain disorders involving the immune mechanism; Z60.2 Problems related to living alone; Z98.890 Other specified postprocedural states; Z88.0 Allergy status to penicillin; Z88.2 Allergy status to sulfonamides; Z79.899 Other long term (current) drug therapy; X30.XXXA Exposure to excessive natural heat, initial encounter; Y93.89 Activity, other specified; Y92.89 Other specified places as the place of occurrence of the external cause; Y99.8 Other external cause status
CPT/HCPCS: 36415; 70450; 71045; 80053; 81001; 84484; 85025; 93005; 99285; J7030

== ENCOUNTER 2021-02-08 14:04 | Emergency (ER) | payer MEDICARE, MEDICAID ==
[~2021-02-08] VITALS: Ht 172.7 cm; Wt 81.8 kg
[~2021-02-08 14:04] MED LIST changes: -CIPR-202 PO; -SULF1TAB49 PO
[2021-02-08 14:19] VITALS: BP 129/98
[2021-02-08 15:08] LABS: BASOPHILS % (AUTO) 0.4 % (0-1); EOSINOPHILS # (AUTO) 0.1 X10'3 (0-0.9); EOSINOPHILS % (AUTO) 1.4 % (0-6); HEMATOCRIT 43.1 % (42.0-52.0); HEMOGLOBIN 14.6 g/dl (14.0-17.9); LYMPHOCYTES # (AUTO) 1.3 X10'3 (1.1-4.8); LYMPHOCYTES % (AUTO) 15.8 % (21-51); MEAN CORPUSCULAR HEMOGLOBIN 33.8 PG (27.0-31.0); MEAN CORPUSCULAR VOLUME 99.5 FL (78-98); MEAN PLATELET VOLUME 7.5 FL (7.4-10.4); MONOCYTES # (AUTO) 0.6 X10'3 (0-0.9); MONOCYTES % (AUTO) 7.6 % (2-12); NEUTROPHILS # (AUTO) 6.2 X10'3 (1.8-7.7); NEUTROPHILS % (AUTO) 74.8 % (42-75); PLATELET COUNT 230 X10'3 (140-440); RED BLOOD COUNT 4.33 X10'6 (4.70-6.10); RED CELL DISTRIBUTION WIDTH 14.1 % (11.5-14.5); WHITE BLOOD COUNT 8.3 X10'3 (4.5-11.0)
[2021-02-08 15:21] LABS: ALANINE AMINOTRANSFERASE 18 U/L (12-78); ALBUMIN/GLOBULIN RATIO 1.3 (1.1-1.5); ALKALINE PHOSPHATASE 96 IU/L (46-116); ANION GAP 11 (8-16); ASPARTATE AMINO TRANSFERASE 24 U/L (10-37); BILIRUBIN,TOTAL 0.9 MG/DL (0.1-1.0); BLOOD UREA NITROGEN 15 MG/DL (7-18); BUN/CREATININE RATIO 14.9 (5.4-32.0); CALCIUM 8.8 MG/DL (8.5-10.1); CHLORIDE 108 MMOL/L (99-107); CREATININE 1.01 MG/DL (0.60-1.10); GLUCOSE 79 MG/DL (70-104); POTASSIUM 3.9 MMOL/L (3.5-5.1); SODIUM 144 MMOL/L (135-145); TOTAL CARBON DIOXIDE 25.5 MMOL/L (24-32); TOTAL PROTEIN 7.2 G/DL (6.4-8.2); eGFR 72 ML/MIN
--- NOTE | 2021-02-08 16:10 | NUR ---
[facility] CALLED FOR TRANSPORT TO [address]. ARRIVAL ETA: 1 1/2 HRS @ 0437
== END 2021-02-08 16:40 | disposition home or self-care (01) ==
LOC: ER 14:04
DX: T67.5XXA Heat exhaustion, unspecified, initial encounter (principal); R53.83 Other fatigue; I25.10 Atherosclerotic heart disease of native coronary artery without angina pectoris; I11.0 Hypertensive heart disease with heart failure; I50.9 Heart failure, unspecified; E11.9 Type 2 diabetes mellitus without complications; G89.29 Other chronic pain; Z86.2 Personal history of diseases of the blood and blood-forming organs and certain disorders involving the immune mechanism; Z60.2 Problems related to living alone; Z98.890 Other specified postprocedural states; Z88.0 Allergy status to penicillin; Z88.2 Allergy status to sulfonamides; Z79.899 Other long term (current) drug therapy; X58.XXXA Exposure to other specified factors, initial encounter; Y93.89 Activity, other specified; Y92.89 Other specified places as the place of occurrence of the external cause; Y99.8 Other external cause status
CPT/HCPCS: 36415; 80053; 85025; 99284

== ENCOUNTER 2021-02-14 11:34 | Emergency (ER) | payer MEDICARE, MEDICAID ==
[~2021-02-14] VITALS: Ht 172.7 cm; Wt 81.0 kg
--- NOTE | 2021-02-14 11:41 | NUR ---
Pt. brought to ER overflow from ambulance bay by EMS on stretcher. Pt. is A&O to self. Pt. reports SI with plan to jump off of bridge. Pt. reports previous suicide attempt by OD but is unsure when that was. Pt. states, "I live alone, I just want to go be with my family in [facility]". Pt. reports that he had an [employer] worker who recently stopped working for him and that he has no way to make food or take care of himself. Pt. reports he was incontinent of bowel and bladder this AM. Pt. disrobed and underwear heavily soiled. Pt. cleaned with bathwipes and given clean underwear, scrubs, and socks. Pt. given urinal and encouraged to urinate for urinalysis. Pt. denies HI, A/V hallucinations. Pt. has 3+ pitting edema bilaterally on feet and ankles. Pt.'s feet are erythmatic. Admission assessment completed.
--- NOTE | 2021-02-14 13:00 | NUR ---
Pt sitting up in bed eating lunch without complaints.
[2021-02-14 13:17] LABS: BASOPHILS % (AUTO) 0.4 % (0-1); EOSINOPHILS # (AUTO) 0.1 X10'3 (0-0.9); EOSINOPHILS % (AUTO) 1.6 % (0-6); HEMATOCRIT 41.4 % (42.0-52.0); HEMOGLOBIN 13.9 g/dl (14.0-17.9); LYMPHOCYTES # (AUTO) 1.4 X10'3 (1.1-4.8); LYMPHOCYTES % (AUTO) 20.6 % (21-51); MEAN CORPUSCULAR HEMOGLOBIN 34.1 PG (27.0-31.0); MEAN CORPUSCULAR HGB CONC 33.6 g/dL (33.0-36.5); MEAN CORPUSCULAR VOLUME 101.4 FL (78-98); MEAN PLATELET VOLUME 7.8 FL (7.4-10.4); MONOCYTES # (AUTO) 0.5 X10'3 (0-0.9); MONOCYTES % (AUTO) 7.3 % (2-12); NEUTROPHILS # (AUTO) 4.7 X10'3 (1.8-7.7); NEUTROPHILS % (AUTO) 70.1 % (42-75); PLATELET COUNT 198 X10'3 (140-440); RED BLOOD COUNT 4.08 X10'6 (4.70-6.10); RED CELL DISTRIBUTION WIDTH 14.3 % (11.5-14.5); WHITE BLOOD COUNT 6.7 X10'3 (4.5-11.0)
[2021-02-14 13:30] LABS: ALANINE AMINOTRANSFERASE 20 U/L (12-78); ALBUMIN 3.6 G/DL (3.4-5.0); ALBUMIN/GLOBULIN RATIO 1.3 (1.1-1.5); ALKALINE PHOSPHATASE 71 IU/L (46-116); ANION GAP 8 (8-16); ASPARTATE AMINO TRANSFERASE 23 U/L (10-37); BILIRUBIN,TOTAL 0.6 MG/DL (0.1-1.0); BLOOD UREA NITROGEN 12 MG/DL (7-18); BUN/CREATININE RATIO 14.6 (5.4-32.0); CALCIUM 8.6 MG/DL (8.5-10.1); CHLORIDE 108 MMOL/L (99-107); CREATININE 0.82 MG/DL (0.60-1.10); GLUCOSE 81 MG/DL (70-104); POTASSIUM 3.7 MMOL/L (3.5-5.1); SODIUM 142 MMOL/L (135-145); TOTAL CARBON DIOXIDE 26.1 MMOL/L (24-32); TOTAL PROTEIN 6.4 G/DL (6.4-8.2); eGFR > 90 ML/MIN
[2021-02-14] MEDS ORDERED: DONE5TAB7 PO (13:33)
[2021-02-14] MEDS ORDERED: ASCO-134 PO (13:33)
[2021-02-14] MEDS ORDERED: CYAN100097 PO (13:33)
[2021-02-14 13:40] LABS: ETHANOL < 0.010 GM/DL (0.0-0.010)
[2021-02-14] MEDS ORDERED: FLUT16SP10 (13:45)
[2021-02-14 13:46] LABS: ACETAMINOPHEN < 2.0 UG/ML (10-30)
--- NOTE | 2021-02-14 15:00 | NUR ---
Pt has been sleeping, but now has awoken and was c/o being cold so pt given heated blanket. Pt acted confused and didn't know where he was. Pt seemed to relax with explanation.
[2021-02-14] MEDS ORDERED: fluticasone nasal spray 16GM bottle NS PRN (15:55)
[2021-02-14 16:27] LABS: CLARITY,URINE CLEAR (Clear); COLOR,URINE YELLOW (Yellow); GLUCOSE, URINE NEGATIVE (Neg); KETONES,URINE 15 mg/dl (Neg); LEUKOCYTE ESTERASE ,URINE NEGATIVE (Neg); NITRITES, URINE NEGATIVE (Neg); OCCULT BLOOD,URINE NEGATIVE (Neg); PROTEIN,URINE TRACE mg/dl (Neg)
[2021-02-14 16:47] LABS: URINE AMPHETAMINE SCREEN NEGATIVE (Neg); URINE BARBITUATE SCREEN NEGATIVE (Neg); URINE BENZODIAZEPINES SCREEN NEGATIVE (Neg); URINE CANNABINOID SCREEN NEGATIVE (Neg); URINE COCAINE SCREEN NEGATIVE (Neg); URINE METHADONE SCREEN NEGATIVE (Neg); URINE OPIATE SCREEN NEGATIVE (Neg); URINE PHENCYCLIDINE SCREEN NEGATIVE (Neg)
--- NOTE | 2021-02-14 16:51 | NUR ---
RT TO BEDSIDE FOR NEW ORDERS WITH SCHEDULED ALBUTEROL Q6 AND BUDESONIDE BID. PT STATES HAS NEVER HAD RESPIRATORY PROBLEMS AND HAS NEVER NEEDED RESPIRATORY MEDS. HE STATES HE WILL NOT TAKE THEM. CONFIRMED WITH ER MD MARCELO BORGES TO DC Addendum: 02/14/21 at 1653 by Cece Lewis RT Amended: Links added.
--- NOTE | 2021-02-14 17:00 | NUR ---
Pt has frequent requests and was able to urinate in the urinal with assistance.
[2021-02-14 17:38] LABS: UA COLLECTION TYPE CLN CATCH MIDSTREAM
[2021-02-14 17:42] LABS: BACTERIA,URINE NONE SEEN /HPF (Neg); MUCUS STRANDS MANY /LPF (Neg); RBC,URINE NONE SEEN /HPF (0-2); SQUAMOUS EPITHELIAL CELL,UR FEW /LPF (FEW); WBC,URINE 0-4 /HPF (0-4)
[2021-02-14 17:43] LABS: HYALINE CASTS 0-3 /LPF (NEGATIVE)
--- NOTE | 2021-02-14 17:57 | NUR ---
PACKET FAXED TO [facility]
--- NOTE | 2021-02-14 18:14 | NUR ---
PT AMBULATED TO BATHROOM USING WALKER AND X1 ASSIST
--- NOTE | 2021-02-14 18:30 | NUR ---
Assumed patient care. Patient is mid fowlers position in bed. In view from nurses station.
--- NOTE | 2021-02-14 19:40 | NUR ---
Interview at bedside. Patient denies S/I, H/I, no hallucinations. Patient is confussed with patches of linear thought. Patient states he was misunderstood earlier, "I want to live to old age!" Patient needs to be re-directed at times. Frequent rounding for patient safety.
[2021-02-14] MEDS ORDERED: potassium chloride 10mEq ER tablet PO SCH ×2 (20:00→22:42)
[2021-02-14] MEDS ORDERED: albuterol 2.5 MG/3 ML nebule NEB SCH (20:00)
[2021-02-14] MEDS ORDERED: non-formulary drug (Fluticasone/Salmeterol* (Advair 250-50 Diskus*) 1 PUFF) IH SCH (20:00)
[2021-02-14] MEDS ORDERED: budesonide 0.5mg/2ml UD nebule IH SCH (20:00)
[2021-02-14] MEDS ORDERED: nitrofuran/nitrofuran macrocrysal 100 MG capsule PO SCH (20:00)
--- NOTE | 2021-02-14 20:33 | NUR ---
Patient demands his fingernails need to be clipped. The patilent became labile when told we had nothing to trim his nails.
[2021-02-14] MEDS ORDERED: rivaroxaban 15mg tablet PO SCH (21:00)
[2021-02-14] MEDS ORDERED: donepezil 5mg tablet PO SCH (21:00)
[2021-02-14] MEDS ORDERED: tamsulosin 0.4mg capsule PO SCH (21:00)
[2021-02-14] MEDS ORDERED: pravastatin 40mg tablet PO SCH (21:00)
--- NOTE | 2021-02-14 21:02 | NUR ---
Patient is mid fowlers in bed. This patient needs re-orientation to reality on occasion. Frequent rounding for patient safety.
[2021-02-14] MEDS: furosemide 20MG tablet PO SCH (22:28)
[2021-02-14] MEDS: docusate sod 100mg capsule PO SCH (22:29)
[2021-02-14] MEDS: carvedilol 6.25mg tablet PO SCH (22:35)
--- NOTE | 2021-02-14 22:40 | NUR ---
Patient in midfowlers position in bed. He naps frequently for short periods.
[2021-02-14] MEDS ORDERED: potassium chloride 10mEq ER tablet PO ONE (23:00)
--- NOTE | 2021-02-14 23:50 | NUR ---
Patient sleeping. No distress. In view from nurses station.
--- NOTE | 2021-02-15 01:30 | NUR ---
Up to bathroom. Patient has a BM, he returns to bed. Patient ambulates using a walker, his gait is normal but rapid.
--- NOTE | 2021-02-15 02:21 | NUR ---
Patient is sleeping on his right side. No distress. Patient has been sleeping intermittently.
--- NOTE | 2021-02-15 03:07 | NUR ---
Patient is up to bathroom, he uses his walker. Patient returns to bed.
--- NOTE | 2021-02-15 04:15 | NUR ---
Patient sleeping in mid fowlers position.
--- NOTE | 2021-02-15 05:19 | NUR ---
Patient sleeping mid fowlers position. In direct view from the nurses station.
--- NOTE | 2021-02-15 05:33 | NUR ---
Patient awake for vital signs, he returns to sleep.
--- NOTE | 2021-02-15 07:00 | NUR ---
Pt. awake and used toilet. Pt. reports small BM. Pt. returned to bed and resting in high fowlers position.
[2021-02-15] MEDS ORDERED: cyanocobalamin 500mcg tablet PO SCH (08:00)
[2021-02-15] MEDS ORDERED: ferrous sulfate 325mg tablet PO SCH (08:00)
[2021-02-15] MEDS ORDERED: calcium carbonate/vitamin D3 tablet PO SCH (08:00)
[2021-02-15] MEDS ORDERED: lisinopril 5mg tablet PO SCH (08:00)
[2021-02-15] MEDS ORDERED: pantoprazole 40mg Tablet.DR PO SCH (08:00)
[2021-02-15] MEDS ORDERED: polyethylene glycol 3350 17gm powd pack PO SCH (08:00)
[2021-02-15] MEDS ORDERED: calcium carbonate 500mg tablet PO SCH (08:00)
[2021-02-15] MEDS ORDERED: ascorbic acid 500mg tablet PO SCH (08:00)
[2021-02-15] MEDS: furosemide 20MG tablet PO SCH (08:02)
[2021-02-15] MEDS: clindamycin 150mg capsule PO SCH ×2 (08:02→13:19)
[2021-02-15] MEDS: carvedilol 6.25mg tablet PO SCH (08:02)
[2021-02-15] MEDS: docusate sod 100mg capsule PO SCH (08:03)
--- NOTE | 2021-02-15 09:00 | NUR ---
Pt. awake and resting in bed in high fowlers position.
--- NOTE | 2021-02-15 13:13 | NUR ---
relieving RN for lunch, pt is eating lunch and then will be dc'd home via taxi
[2021-02-15] MEDS ORDERED: CLIN150C8 PO (13:47)
[2021-02-15 16:39] VITALS: BP 141/90
[2021-02-15] MEDS ORDERED: lactobacillus rhamnosus 10,000 MMU CELLS/CAPSULE PO SCH (20:00)
== END 2021-02-15 14:47 | disposition home or self-care (01) ==
LOC: ER 11:34
DX: R45.851 Suicidal ideations (principal); L03.115 Cellulitis of right lower limb; M25.571 Pain in right ankle and joints of right foot; I25.10 Atherosclerotic heart disease of native coronary artery without angina pectoris; I11.0 Hypertensive heart disease with heart failure; I50.9 Heart failure, unspecified; E11.9 Type 2 diabetes mellitus without complications; G89.29 Other chronic pain; Z86.2 Personal history of diseases of the blood and blood-forming organs and certain disorders involving the immune mechanism; Z98.890 Other specified postprocedural states; Z60.2 Problems related to living alone; Z88.0 Allergy status to penicillin; Z88.2 Allergy status to sulfonamides; Z79.899 Other long term (current) drug therapy
CPT/HCPCS: 36415; 80053; 80305; 80320; 80329; 81001; 84443; 85025; 99285